=== PATIENT | male | born 1955 | race American Indian/Alaskan Native ===

== ENCOUNTER 2018-03-15 13:35 | Inpatient (IN) ==
--- NOTE | 2018-03-15 13:58 | Emergency Department Note ---
Nausea/Vomiting/Diarrhea HPI - General Chief complaint: Nausea/Vomiting/Diarrhea Stated complaint: n/v/d for 2 days Time Seen by Provider: 03/15/18 13:55 Source: EMS Mode of arrival: EMS Limitations: language barrier - History of Present Illness HPI Narrative: Apparently family called EMS because of patient having nausea, vomiting, diarrhea for 2-3 days. This is per EMS and patient admitted some of this to triage nursing but it is difficult to get much information out of him as he appears to be confused, focus was on some back pain, does not answer questions very well, does not seem to understand, etc. REVIEW OF SYSTEMS: Today has denied chest pain, shortness of breath. Has had abdominal pain. Reports low back pain. He has a history of some constipation and incontinence. - Related Data Home Medications Medication Instructions Recorded Confirmed Lisinopril [Zestril] 20 mg PO DAILY 03/02/15 03/15/18 acetaminophen 650 mg PO Q6H PRN 05/31/17 03/15/18 albuterol sulfate HFA 90 2 puff INHALATION QID g 05/31/17 03/15/18 mcg/actuation aerosol inhaler chlorthalidone 25 mg tablet 12.5 mg PO QDAY tab 05/31/17 03/15/18 cyanocobalamin (vitamin B-12) 1 tab PO QAM 05/31/17 03/15/18 docusate sodium 100 mg capsule 100 mg PO BID PRN 05/31/17 03/15/18 ergocalciferol (vitamin D2) 50,000 50,000 unit PO QWEEK 05/31/17 03/15/18 unit capsule folic acid 1 mg tablet 1 mg PO QAM tab 05/31/17 03/15/18 hydrocortisone 1 applic TOPICAL BID PRN 05/31/17 03/15/18 ipratropium bromide 2 puff INHALATION BID 05/31/17 03/15/18 lactulose 15 ml PO BID 05/31/17 03/15/18 polyethylene glycol 3350 17 g PO QAM 05/31/17 03/15/18 Allergies Allergy/AdvReac Type Severity Reaction Status Date / Time aspirin [ASPIRIN] Allergy Unknown unkown Verified 07/12/17 07:25 NSAIDS (Non-Steroidal Allergy Unknown Unknown Verified 07/08/17 10:27 Anti-Inflamma Past Medical History - Past Medical History PMFSH Narrative: All Active Problems (Last Updated 03/15/18 @ 14:43 by Fidencio Menezes DO) Elevated transaminase level (Chronic) Neuropathy (Chronic) Anemia (Chronic) Reactive airway disease (Chronic) Alcohol abuse (Chronic) Hypertension (Chronic) Cholelithiasis (Chronic) Cirrhosis of liver (Chronic) Chronic pain - hip, back, neck Pulmonary HTN Past Surgical History (Last Reviewed 07/08/17 @ 14:08 by Faustina Ruiz MD) History of open reduction and internal fixation (ORIF) procedure (Chronic) Family History (Last Reviewed 07/08/17 @ 14:08 by Faustina Ruiz MD) Father Heart disease Stroke Brother Heart disease Medical history: Reports: arthritis, renal disease Psychiatric history: Reports: no psych history Surgical history ED: Reports: hip replacement (left), orthopedic, other - Social History smoking status: Current some day smoker Alcohol use: Reports: None (history of alcoholism) Drug use: Reports: none Physical Exam Limitations: language barrier General appearance: in no apparent distress, lethargic, other (poorly interactive/responsive.) Head: atraumatic, normocephalic Eye: Present: EOMI Neck: Present: trachea midline. Absent: lymphadenopathy, thyromegaly Respiratory: Present: normal lung sounds bilaterally. Absent: respiratory distress, wheezes, stridor, accessory muscle use, prolonged expiratory phase Cardiovascular: Present: regular rate, normal rhythm. Absent: systolic murmur, diastolic murmur Course Course Narrative: 2:03 PM - patient initially would not respond to any of my questions. 15-20 minutes later he had appropriate eye opening and some interaction but still was difficult to get any reliable answers from him. He spoke of back pain but on exam he was not tender to percussion over the spinous processes, lumbosacral joint area or sacroiliac areas. No deformity or mass or nodule. Because of his obtundation, multiple labs, tox screen, UA with drugs of abuse and CT scan of the head were eventually ordered. Labs demonstrated a urinary tract infection but no elevated white count. He had a low-grade temperature of 100.2. Blood cultures obtained, urine culture and ceftriaxone ordered. Has some chronic thrombocytopenia and elevated transaminase similar to previously. 2:38 PM - I tried to call patient's sister, Anneliese, at [phone], with no success and left a message requesting callback. I repeated this approximately 45-60 minutes later. Vital Signs Temperature 100.2 F H 03/15/18 13:38 Pulse Rate 80 03/15/18 13:38 Respiratory Rate 22 03/15/18 13:38 Blood Pressure 129/67 03/15/18 13:38 Pulse Oximetry (%) 95 03/15/18 13:38 Temperature 100.2 F H 03/15/18 13:38 Pulse Rate 76 03/15/18 15:52 Respiratory Rate 22 03/15/18 13:38 Blood Pressure 136/105 03/15/18 15:47 Pulse Oximetry (%) 100 03/15/18 15:52 Nausea/Vomiting/Diarrhea - Lab Data Result diagrams: 03/15/18 14:01 03/15/18 14:01 Lab Results 03/15/18 03/15/18 03/15/18 Range/Units 14:01 14:01 14:01 WBC 4.1 L (4.5-11.0) K/mcL RBC 4.36 L (4.50-5.90) M/mcL Hgb 13.9 (13.5-16.5) g/dL Hct 40.8 L (41.0-55.0) % POC Hct 41.0 (41.0-55.0) % MCV 93.7 (80.0-100.0) fL MCH 31.9 (26.0-34.0) pg MCHC 34.1 (31.0-36.0) g/dL RDW 14.8 H (11.5-14.5) % Plt Count 128 L (140-440) K/mcL MPV 8.8 (7.4-10.4) fL Total Counted 100 Seg Neutrophils % 70 (38-78) % Band Neutrophils % 3 (0-10) % Lymphocytes % 16 (15-49) % Monocytes % (Manual) 6 (1-12) % Eosinophils % (Manual) 2 (0-7) % Reactive Lymphocytes 3 H (0-2) % Platelet Estimate Decreased A (NORMAL) RBC Morphology Abnorm A (NORMAL) Anisocytosis 1+ A (NONE SEEN) VBG Lactic Acid (0.5-2.2) mmol/L POC Sodium 144 (133-145) mmol/L Sodium 142 (133-145) mmol/L POC Potassium 3.2 L (3.3-5.1) mmol/L Potassium 3.3 (3.3-5.1) mmol/L POC Chloride 106 (96-108) mmol/L Chloride 105 (96-108) mmol/L Carbon Dioxide 23 (22-30) mmol/L POC Total CO2 24 (22-30) mmol/L Anion Gap 14.0 (8-16) POC BUN 15 (8-23) mg/dl BUN 12 (8-23) mg/dl Creatinine 0.8 (0.7-1.2) mg/dl POC Creatinine 0.7 (0.7-1.2) mg/dl GFR Calculation 96 Glucose 100 (70-105) mg/dL POC Glucose 96 (70-105) mg/dL Calcium 9.4 (8.6-10.4) mg/dl POC WB Ioniz Calcium 1.13 L (1.16-1.32) mmol/L Total Bilirubin 2.0 H (0.0-1.0) mg/dL AST 55 H (0-37) U/l ALT 33 (0-40) U/l Alkaline Phosphatase 87 (39-117) U/L Ammonia 82 H (16-60) umol/L Total Protein 6.5 (5.9-8.4) gm/dL Albumin 3.0 L (3.2-5.2) gm/dL Globulin 3.5 (2.2-3.7) gm/dL Albumin/Globulin Ratio 0.9 L (1.0-2.3) Urine Color Urine Appearance Urine pH (5.0-9.0) Ur Specific [place] (1.000-1.035) Urine Protein (NEG) mg/dL Urine Glucose (UA) (NEG) mg/dL Urine Ketones (NEG) mg/dL Urine Occult Blood (<0.03) mg/dL Urine Nitrate (NEG) Urine Bilirubin (NEG) mg/dL Urine Ictotest (NEG) Urine Urobilinogen (NEG) mg/dL Ur Leukocyte Esterase (NEG) /uL Urine RBC (0-1) /hpf Urine WBC (0-4) /hpf Ur Squamous Epith Cells (0-4) /hpf Ur Transition Epith Cell (0-2) /hpf Urine Bacteria (0) /hpf Hyaline Casts (0-2) /lpf Urine Mucus (0) /hpf Ur Culture Indicated? Urine Opiates Screen (NONDETECTED) Ur Oxycodone Screen (NONDETECTED) Urine Methadone Screen (NONDETECTED) Ur Barbiturates Screen (NONDETECTED) Ur Phencyclidine Scrn (NONDETECTED) Ur Amphetamines Screen (NONDETECTED) U Benzodiazepines Scrn (NONDETECTED) Urine Cocaine Screen (NONDETECTED) U Marijuana (THC) Screen (NONDETECTED) Ethyl Alcohol (<0.010) gm/dl 03/15/18 03/15/18 03/15/18 Range/Units 14:01 14:01 14:45 WBC (4.5-11.0) K/mcL RBC (4.50-5.90) M/mcL Hgb (13.5-16.5) g/dL Hct (41.0-55.0) % POC Hct (41.0-55.0) % MCV (80.0-100.0) fL MCH (26.0-34.0) pg MCHC (31.0-36.0) g/dL RDW (11.5-14.5) % Plt Count (140-440) K/mcL MPV (7.4-10.4) fL Total Counted Seg Neutrophils % (38-78) % Band Neutrophils % (0-10) % Lymphocytes % (15-49) % Monocytes % (Manual) (1-12) % Eosinophils % (Manual) (0-7) % Reactive Lymphocytes (0-2) % Platelet Estimate (NORMAL) RBC Morphology (NORMAL) Anisocytosis (NONE SEEN) VBG Lactic Acid 2.1 (0.5-2.2) mmol/L POC Sodium (133-145) mmol/L Sodium (133-145) mmol/L POC Potassium (3.3-5.1) mmol/L Potassium (3.3-5.1) mmol/L POC Chloride (96-108) mmol/L Chloride (96-108) mmol/L Carbon Dioxide (22-30) mmol/L POC Total CO2 (22-30) mmol/L Anion Gap (8-16) POC BUN (8-23) mg/dl BUN (8-23) mg/dl Creatinine (0.7-1.2) mg/dl POC Creatinine (0.7-1.2) mg/dl GFR Calculation Glucose (70-105) mg/dL POC Glucose (70-105) mg/dL Calcium (8.6-10.4) mg/dl POC WB Ioniz Calcium (1.16-1.32) mmol/L Total Bilirubin (0.0-1.0) mg/dL AST (0-37) U/l ALT (0-40) U/l Alkaline Phosphatase (39-117) U/L Ammonia (16-60) umol/L Total Protein (5.9-8.4) gm/dL Albumin (3.2-5.2) gm/dL Globulin (2.2-3.7) gm/dL Albumin/Globulin Ratio (1.0-2.3) Urine Color Urine Appearance Urine pH (5.0-9.0) Ur Specific [place] (1.000-1.035) Urine Protein (NEG) mg/dL Urine Glucose (UA) (NEG) mg/dL Urine Ketones (NEG) mg/dL Urine Occult Blood (<0.03) mg/dL Urine Nitrate (NEG) Urine Bilirubin (NEG) mg/dL Urine Ictotest (NEG) Urine Urobilinogen (NEG) mg/dL Ur Leukocyte Esterase (NEG) /uL Urine RBC (0-1) /hpf Urine WBC (0-4) /hpf Ur Squamous Epith Cells (0-4) /hpf Ur Transition Epith Cell (0-2) /hpf Urine Bacteria (0) /hpf Hyaline Casts (0-2) /lpf Urine Mucus (0) /hpf Ur Culture Indicated? Urine Opiates Screen None detected (NONDETECTED) Ur Oxycodone Screen None detected (NONDETECTED) Urine Methadone Screen None detected (NONDETECTED) Ur Barbiturates Screen None detected (NONDETECTED) Ur Phencyclidine Scrn None detected (NONDETECTED) Ur Amphetamines Screen Suspect positive A (NONDETECTED) U Benzodiazepines Scrn None detected (NONDETECTED) Urine Cocaine Screen None detected (NONDETECTED) U Marijuana (THC) Screen Suspect positive A (NONDETECTED) Ethyl Alcohol < 0.010 (<0.010) gm/dl 03/15/18 Range/Units 14:45 WBC (4.5-11.0) K/mcL RBC (4.50-5.90) M/mcL Hgb (13.5-16.5) g/dL Hct (41.0-55.0) % POC Hct (41.0-55.0) % MCV (80.0-100.0) fL MCH (26.0-34.0) pg MCHC (31.0-36.0) g/dL RDW (11.5-14.5) % Plt Count (140-440) K/mcL MPV (7.4-10.4) fL Total Counted Seg Neutrophils % (38-78) % Band Neutrophils % (0-10) % Lymphocytes % (15-49) % Monocytes % (Manual) (1-12) % Eosinophils % (Manual) (0-7) % Reactive Lymphocytes (0-2) % Platelet Estimate (NORMAL) RBC Morphology (NORMAL) Anisocytosis (NONE SEEN) VBG Lactic Acid (0.5-2.2) mmol/L POC Sodium (133-145) mmol/L Sodium (133-145) mmol/L POC Potassium (3.3-5.1) mmol/L Potassium (3.3-5.1) mmol/L POC Chloride (96-108) mmol/L Chloride (96-108) mmol/L Carbon Dioxide (22-30) mmol/L POC Total CO2 (22-30) mmol/L Anion Gap (8-16) POC BUN (8-23) mg/dl BUN (8-23) mg/dl Creatinine (0.7-1.2) mg/dl POC Creatinine (0.7-1.2) mg/dl GFR Calculation Glucose (70-105) mg/dL POC Glucose (70-105) mg/dL Calcium (8.6-10.4) mg/dl POC WB Ioniz Calcium (1.16-1.32) mmol/L Total Bilirubin (0.0-1.0) mg/dL AST (0-37) U/l ALT (0-40) U/l Alkaline Phosphatase (39-117) U/L Ammonia (16-60) umol/L Total Protein (5.9-8.4) gm/dL Albumin (3.2-5.2) gm/dL Globulin (2.2-3.7) gm/dL Albumin/Globulin Ratio (1.0-2.3) Urine Color Jenna Urine Appearance Hazy Urine pH 5.0 (5.0-9.0) Ur Specific [place] 1.024 (1.000-1.035) Urine Protein 30 A (NEG) mg/dL Urine Glucose (UA) Negative (NEG) mg/dL Urine Ketones 5/tr A (NEG) mg/dL Urine Occult Blood 0.03 A (<0.03) mg/dL Urine Nitrate Pos A (NEG) Urine Bilirubin 2.0 A (NEG) mg/dL Urine Ictotest Pos A (NEG) Urine Urobilinogen 4.0 A (NEG) mg/dL Ur Leukocyte Esterase 250 A (NEG) /uL Urine RBC 2 H (0-1) /hpf Urine WBC 108 H (0-4) /hpf Ur Squamous Epith Cells < 1 (0-4) /hpf Ur Transition Epith Cell 1 (0-2) /hpf Urine Bacteria Many A (0) /hpf Hyaline Casts 8 H (0-2) /lpf Urine Mucus Many A (0) /hpf Ur Culture Indicated? Yes Urine Opiates Screen (NONDETECTED) Ur Oxycodone Screen (NONDETECTED) Urine Methadone Screen (NONDETECTED) Ur Barbiturates Screen (NONDETECTED) Ur Phencyclidine Scrn (NONDETECTED) Ur Amphetamines Screen (NONDETECTED) U Benzodiazepines Scrn (NONDETECTED) Urine Cocaine Screen (NONDETECTED) U Marijuana (THC) Screen (NONDETECTED) Ethyl Alcohol (<0.010) gm/dl Disposition Pt seen by [employer]/[facility] only: No Clinical Impression: Mental status, decreased, Amphetamine abuse, Marijuana use Urinary tract infection Qualifiers: Urinary tract infection type: site unspecified Hematuria presence: without hematuria Qualified Code(s): N39.0 - Urinary tract infection, site not specified Summary: 4:05 PM - patient's scenario discussed with Dr. Rocha, with conclusion for admission. Probable hepatic encephalopathy. Patient had an elevated ammonia level. Still was unable to contact family to clarify patient's baseline. He at least has mental status changes with confusion and a significant urinary tract infection. With fever consider complicated UTI. Dr. Rocha kindly accepted care of this patient. Because of his confusion and some agitation with getting out of bed, he will require closer monitoring. Long-term care issues for his assistance and maintenance care remain unanswered. Disposition: Xfer As Inpt ([facility]) Condition: Fair Referrals: Carline Urbina ARNP [Primary Care Provider] -
[2018-03-15 14:46] LABS: Mean Cell Volume 93.7 fL (80.0-100.0); Mean Corpuscular HGB Conc 34.1 g/dL (31.0-36.0); Mean Corpuscular Hemoglobin 31.9 pg (26.0-34.0); Platelet Count 128 K/mcL (140-440); RBC 4.36 M/mcL (4.50-5.90); Red Cell Distribution Width 14.8 % (11.5-14.5)
[2018-03-15 15:08] LABS: ALT/SGPT 33 U/l (0-40); Albumin/Globulin Ratio 0.9 (1.0-2.3); Alkaline Phosphatase 87 U/L (39-117); Blood Urea Nitrogen 12 mg/dl (8-23)
[2018-03-15] MEDS ORDERED: cefTRIAXone 1 GM VIAL IV ONE (15:27)
[2018-03-15 15:45] LABS: Appearance,Urine HAZY; Bacteria,Urine MANY /hpf (0); Color,Urine AMBER; Glucose,Urine (UA) NEGATIVE (NEG); Ictotest,Urine POS (NEG); Leukocyte Esterase,Urine 250 /uL (NEG); Mucus,Urine MANY /hpf (0); Protein,Urine 30 mg/dL (NEG); Specific Gravity,Urine 1.024 (1.000-1.035); Urine Blood 0.03 mg/dL (<0.03); Urine Hyaline Cast 8 /lpf (0-2); Urine RBC 2 /hpf (0-1); Urine Squamous Epithelial Cell < 1 /hpf (0-4); Urine Transitional Epi Cells 1 /hpf (0-2); Urine WBC 108 /hpf (0-4)
[2018-03-15 15:55] LABS: Amphetamine Screen,Urine SUSPECT POSITIVE (NONDETECTED); Benzodiazepines Screen,Urine NONE DETECTED (NONDETECTED); Cocaine Screen,Urine NONE DETECTED (NONDETECTED); Opiate Screen,Urine NONE DETECTED (NONDETECTED); Oxycodone, Urine Screen NONE DETECTED (NONDETECTED)
[2018-03-15 16:05] LABS: Anisocytosis 1+ (NONE SEEN); Band Neutrophils % 3 % (0-10); Eosinophils % (Manual) 2 % (0-7); Lymphocytes % 16 % (15-49); Monocytes % (Manual) 6 % (1-12); Platelet Estimate DECREASED (NORMAL); RBC Morphology ABNORM (NORMAL); Segmented Neutrophils % 70 % (38-78)
[2018-03-15] MEDS ORDERED: 0.9 % SODIUM CHLORIDE 1,000 ML IV ONE (16:12)
--- NOTE | 2018-03-15 16:47 | Internal Med History&Physical ---
Medical - H&P: HPI Patient information: Note initiated : 03/15/18 at 4:44 pm Service Date, if different from initiated Date: [] Patient: Romero Goodman a 62 y/o M admitted on for n/v/d for 2 days. Chief Complaint: [] History of present illness: Mr. Goodman is a 62 year old M who presents to the ER today with complaints of nausea/vomiting / diarrhea? the patient is confused and obtunded, no history possible from the patient, opens eyes intermittently, but unable to provide any meaningful history To the ER provider it seems he complained about back pain. In the ER The patient had a low-grade fever on presentation of 100.2, heart rate 80, blood pressure 131/88 saturating 99% on room air. The patient was obtunded unable to provide any meaningful history. Head CT was done and has been reported as negative, abdominal x-ray has been reported as negative, Labs show WBC count of 4.1 which is chronically low, hemoglobin 13.9, platelets 128 chronically low, chemistry shows sodium 142, potassium 3.3 creatinine 0.8 bicarbonate 23 glucose of 100. Lactic acid 2.1, albumin 3, total bilirubin 2, AST 55 ALT 33. Alk phos 87. Ammonia level elevated at 82. UA suggestive of urinary tract infection. Patient has a urine tox which is positive for methamphetamine as well as marijuana. Negative for alcohol negative for opiates. On further review of the chart it seems that the patient does have a history of cirrhosis of his liver, chronic back pain and has been seen in the pain clinic in [facility] the last note that I can access is August 2016. ROS unobtainable: due to mental status Medical - H&P: PMH Medical history: Medical History (Last Updated 03/15/18 @ 15:21 by Fidencio Menezes DO) Hip joint pain, left (ICD-719.45) (TLD36-M82.552) Lumbar radiculitis (ICD-724.4) (MLQ16-D75.16) Back pain, lumbar, chronic (ICD-724.2) (HBN81-O82.5) buttermaker helper opioid therapy (ICD-V58.69) (GIA09-A59.891) Astigmatism (ICD-367.20) (VLF76-F99.209) Anisometropia (ICD-367.31) (CJL85-B51.31) Presbyopia (ICD-367.4) (VSR20-P44.4) Myopia (ICD-367.1) (SBP03-Q12.10) Hypertensive disorder (ICD-401.9) (GDO76-K32) Chronic hepatitis C without mention of hepatic coma (ICD-070.54) (AEQ19-Y23.2) Amphetamine abuse (ICD-305.70) (XOW39-N88.10) Cirrhosis, alcoholic (ICD-571.2) (TGK40-B95.30) Pancytopenia (ICD-284.1) (SCP63-W84.818) Thrombocytopenia (ICD-287.5) (HNS63-Q08.6) Degenerative arthritis (ICD-715.90) (GHE49-U60.90) Anemia (ICD-285.9) (GXC00-P75.9) Alcohol withdrawal seizure (ICD-291.89) (GUP61-U44.259) Alcohol abuse (ICD-305.00) (PWB56-Z67.10 Surgical history: Past Surgical History (Last Reviewed 07/08/17 @ 14:08 by Faustina Ruiz MD) History of open reduction and internal fixation (ORIF) procedure (Chronic) Pertinent family history: Family History (Last Reviewed 07/08/17 @ 14:08 by Faustina Ruiz MD) Father Heart disease Stroke Brother Heart disease Medical - H&P: Meds Home Medications Medication Instructions Recorded Confirmed Type Lisinopril [Zestril] 20 mg PO DAILY 03/02/15 03/15/18 History acetaminophen 650 mg PO Q6H PRN 05/31/17 03/15/18 History albuterol sulfate HFA 90 2 puff INHALATION QID g 05/31/17 03/15/18 History mcg/actuation aerosol inhaler chlorthalidone 25 mg tablet 12.5 mg PO QDAY tab 05/31/17 03/15/18 History cyanocobalamin (vitamin B-12) 1 tab PO QAM 05/31/17 03/15/18 History docusate sodium 100 mg capsule 100 mg PO BID PRN 05/31/17 03/15/18 History ergocalciferol (vitamin D2) 50,000 50,000 unit PO QWEEK 05/31/17 03/15/18 History unit capsule folic acid 1 mg tablet 1 mg PO QAM tab 05/31/17 03/15/18 History hydrocortisone 1 applic TOPICAL BID PRN 05/31/17 03/15/18 History ipratropium bromide 2 puff INHALATION BID 05/31/17 03/15/18 History lactulose 15 ml PO BID 05/31/17 03/15/18 History polyethylene glycol 3350 17 g PO QAM 05/31/17 03/15/18 History Allergies Allergy/AdvReac Type Severity Reaction Status Date / Time aspirin [ASPIRIN] Allergy Unknown unkown Verified 07/12/17 07:25 NSAIDS (Non-Steroidal Allergy Unknown Unknown Verified 07/08/17 10:27 Anti-Inflamma Medical - H&P: Exam - Constitutional Vitals: Temp Pulse Resp BP Pulse Ox 99.6 F H 63 22 131/88 99 03/15/18 16:34 03/15/18 16:23 03/15/18 13:38 03/15/18 16:18 03/15/18 16:23 Exam: GENERAL: The patient is a poorly kept individual, obtunded, in no apparent distress. Opens eyes but closes them rapidly does not seem to follow many commands VITAL SIGNS: Reviewed and as noted elsewhere. HEENT: Head is normocephalic and atraumatic. Extraocular muscles are intact. Pupils are equal, round, and reactive to light. Nares appeared normal. Mouth appears any without lesions. Poor dentition, mucous membranes are dry. NECK: Normal to inspection, Supple, No lymphadenopathy or thyromegaly. LUNGS: Air entry equal on both sides, no wheezing, crackles or rhonchi noted. No accessory muscles of respiration HEART: Regular rate and rhythm normal, S1 and S2 heard, no Gallop, S3 or Rub Noted, No Gross murmur heard. ABDOMEN: Soft, nontender, and nondistended. Positive bowel sounds. No hepatosplenomegaly was noted. EXTREMITIES: No cyanosis, clubbing, rash, lesions or edema. NEUROLOGIC: Cranial nerves II through XII are grossly intact. Moving all extremities, astrexis present, Encephalopathic. PSYCHIATRIC: Drowsy, SKIN: No ulceration or wounds noted, No jaundice, No rash noted. Medical - H&P: Reslt - Labs CBC & Chem 7: 03/15/18 14:01 03/15/18 14:01 Labs: Short CBC 03/15/18 Range/Units 14:01 WBC 4.1 L (4.5-11.0) K/mcL Hgb 13.9 (13.5-16.5) g/dL Hct 40.8 L (41.0-55.0) % Plt Count 128 L (140-440) K/mcL BMP 03/15/18 14:01 Sodium 142 Potassium 3.3 Chloride 105 Carbon Dioxide 23 BUN 12 Creatinine 0.8 Glucose 100 Calcium 9.4 Liver Function 03/15/18 Range/Units 14:01 Total Bilirubin 2.0 H (0.0-1.0) mg/dL AST 55 H (0-37) U/l ALT 33 (0-40) U/l Alkaline Phosphatase 87 (39-117) U/L Albumin 3.0 L (3.2-5.2) gm/dL Urine 03/15/18 Range/Units 14:45 Urine Color Jenna Urine Appearance Hazy Urine pH 5.0 (5.0-9.0) Ur Specific [place] 1.024 (1.000-1.035) Urine Protein 30 A (NEG) mg/dL Urine Glucose (UA) Negative (NEG) mg/dL Medical - H&P: A/P - Narrative A/P Narrative: A/P Urinary tract Infection Hepatic Encephalopathy Cirrhosis of Liver, Alcoholic Polysubstance abuse Chronic pain Thrombocytopenia Leucopenia Plan Admit to tele get CT Abdomen and pelvis, no e/o ascites clinically. R/o pyelonephritis, IV Rocephin for UTI, await cultures, IV fluids, Start on lactulose, for hepatic encephalopathy, susan stable, check INR. if patient unable to tolerate po, will place NG tube. Banana bag IV Daily thiamine and folic acid Will not initiate ciwa at this time, pt has h/o of etoh withdrawal, but presently seems encephalopathic, will have to be careful with use of ativan for encephalopathy. oxycodone prn for pain DVT hep sq Diet regular, mech soft, FUll code. Social History - Tobacco smoking status: Current some day smoker - Alcohol alcohol intake frequency: a few times a month - Substance use substance use type: other
--- NOTE | 2018-03-15 17:37 | XRay Report ---
CLINICAL INFORMATION: Abd pain, n/v COMPARISON: None. FINDINGS: The stool gas pattern is unremarkable. There is no free air, soft tissue mass, organomegaly or pathologic calcification. IMPRESSION: Normal abdomen Interpreted and Authenticated by: Migel Weems 03/15/18
--- NOTE | 2018-03-15 17:44 | Cat Scan Report ---
CLINICAL INFORMATION: Effusion obtundation COMPARISON: None. TECHNIQUE: 2.5 mm helical slices were obtained in the skull base to vertex. Following reconstruction, axial reformatted images were reviewed at bone and parenchymal windows. The exam was performed using radiation dose optimization techniques including, but not limited to, automated exposure control, adjustment of the mA and/or kV according to patient size and use of iterative reconstruction technique. Motion artifact mildly compromises the posterior fossa region FINDINGS: The ventricles, sulci, fissures, and cisterns are symmetrically enlarged compatible with moderate atrophy - no subdural hemorrhage or extra-axial fluid collections appreciated. Patchy chronic ischemic changes seen in the cerebral white matter. There is no intracerebral hemorrhage, mass effect or edema. Bone windows show a 4 cm mass filling the right maxillary sinus which completely erodes the medial wall maxillary sinus and extending into the nasal region. IMPRESSION: 1. Moderate atrophy and chronic ischemic changes in the cerebral white matter is more than is typically seen in this age group. There is no hemorrhage or other acute intracerebral abnormality 2. 4 cm mass filling the right maxillary sinus and eroding the medial wall of the sinus extending the nasal cavity. While this may represent polyp, mucocele or mucous retention cysts, a facial CT is recommended to evaluate for squamous cell carcinoma. The patient will likely require biopsy by ENT. The facial CT should be performed when the patient's mental status is clear Interpreted and Authenticated by: Migel Weems 03/15/18
[2018-03-15] MEDS ORDERED: NALOXONE HCL 0.4 MG/ML VIAL IV PRN (18:44)
[2018-03-15] MEDS ORDERED: oxyCODONE HCL 5 MG TABLET PO PRN (18:44)
[2018-03-15] MEDS ORDERED: cefTRIAXone 1 GM in DEXTROSE 5% IN WATER 50 ML IV SCH (18:44)
[2018-03-15] MEDS ORDERED: ONDANSETRON 4 MG/2 ML VIAL IV PRN (18:44)
[2018-03-15] MEDS ORDERED: POTASSIUM CHLORIDE 20 MEQ, MAGNESIUM SULFATE 16.24 MEQ, THIAMINE 100 MG, MVI, ADULT NO.... IV SCH (18:44)
[2018-03-15] MEDS: DEXTROSE 5%-LR 1,000 ML IV SCH (19:10)
[2018-03-15] MEDS: LACTULOSE 20 GM/30 ML ORAL.SOL PO SCH ×2 (19:14→21:49)
[2018-03-15] MEDS ORDERED: LACTULOSE 20 GM/30 ML ORAL.SOL ONE (19:19)
[2018-03-15] MEDS: IPRATROPIUM/ALBUTEROL 3 ML AMPUL.NEB NEB SCH (19:50)
[2018-03-15] MEDS ORDERED: IPRATROPIUM/ALBUTEROL 3 ML AMPUL.NEB NEB ONE (19:55)
[2018-03-15] MEDS ORDERED: IOPAMIDOL 100 ML BOTTLE IV ONE (20:42)
[2018-03-15] MEDS: 0.9 % SODIUM CHLORIDE 10 ML SYRINGE IV SCH (21:55)
[2018-03-15] MEDS: HEPARIN 5,000 UNIT/ML VIAL SQ SCH (21:55)
[2018-03-16] MEDS: IPRATROPIUM/ALBUTEROL 3 ML AMPUL.NEB NEB SCH ×4 (00:52→18:35)
[2018-03-16] MEDS: DEXTROSE 5%-LR 1,000 ML IV SCH ×5 (05:19→22:09)
[2018-03-16] MEDS: 0.9 % SODIUM CHLORIDE 10 ML SYRINGE IV SCH ×3 (06:31→20:26)
[2018-03-16 07:14] LABS: Basophils # (Auto) 0 K/mcL (0.0-0.3); Basophils % (Auto) 0.5 % (0.0-2.0); Eosinophils # (Auto) 0.1 K/mcL (0.0-0.7); Eosinophils % (Auto) 2.5 % (0.0-7.0); Granulocytes % (Auto) 60.7 % (38.0-78.0); Lymphocytes % (Auto) 22.7 % (15.5-49.0); Mean Cell Volume 94.1 fL (80.0-100.0); Mean Corpuscular HGB Conc 34.2 g/dL (31.0-36.0); Mean Corpuscular Hemoglobin 32.2 pg (26.0-34.0); Monocytes # (Auto) 0.6 K/mcL (0.1-0.9); Monocytes % (Auto) 13.6 % (1.0-12.0); Platelet Count 123 K/mcL (140-440); Red Cell Distribution Width 15.3 % (11.5-14.5)
[2018-03-16 07:36] LABS: ALT/SGPT 29 U/l (0-40); Albumin 2.9 gm/dL (3.2-5.2); Albumin/Globulin Ratio 0.9 (1.0-2.3); Alkaline Phosphatase 85 U/L (39-117); Bilirubin,Direct 0.3 mg/dL (0.0-0.3); Blood Urea Nitrogen 11 mg/dl (8-23); Gamma Glutamyl Transpeptidase 26 U/L (8-61); Uric Acid 5.9 mg/dL (2.5-8.0)
--- NOTE | 2018-03-16 08:15 | XRay Report ---
CLINICAL INFORMATION: altered mental status COMPARISON: 07/12/2017 FINDINGS: Heart size, mediastinum and pulmonary vessels are normal. Minor airspace disease in the right base likely represents atelectasis and scar. No definite infiltrate or effusion. Bones soft tissues are grossly normal. IMPRESSION: Minor right basilar atelectasis. Interpreted and Authenticated by: Migel Weems 03/16/18
[2018-03-16] MEDS: HEPARIN 5,000 UNIT/ML VIAL SQ SCH ×2 (08:39→20:26)
[2018-03-16] MEDS: LACTULOSE 20 GM/30 ML ORAL.SOL PO SCH ×3 (08:39→20:26)
[2018-03-16] MEDS ORDERED: cefTRIAXone 1 GM VIAL IV SCH (09:00)
[2018-03-16] MEDS ORDERED: LISINOPRIL 20 MG TABLET PO SCH (09:00)
[2018-03-16] MEDS ORDERED: FOLIC ACID 1 MG TABLET PO SCH (09:00)
[2018-03-16] MEDS ORDERED: POTASSIUM CHLORIDE 20 MEQ PACKET PO ONE (09:13)
[2018-03-16] MEDS ORDERED: THIAMINE 100 MG TABLET PO SCH (09:14)
[2018-03-16] MEDS ORDERED: POTASSIUM CHLORIDE 40 MEQ in DEXTROSE 5% IN WATER 500 ML IV ONE (10:00)
--- NOTE | 2018-03-16 10:43 | Cat Scan Report ---
CLINICAL INFORMATION: Nausea/vomiting and abdominal distention. Evaluate for urinary tract infection COMPARISON: Abdominal MRI - 10/11/2015 TECHNIQUE: Following enteric contrast, 80 cc of Isovue-300 were injected intravenously, and 60 seconds later, 0.625 mm helical slices were obtained from the mid heart through the subtrochanteric regions. Following reconstruction, 2.5 mm sagittal, coronal and axial reformatted images were processed and reviewed at bone, lung and soft tissue windows. Five minutes later, 0.625 mm helical slices were obtained from the mid heart through the kidneys and viewed at soft tissue windows.The exam was performed using radiation dose optimization techniques including, but not limited to, automated exposure control, adjustment of the mA and/or kV according to patient size and use of iterative reconstruction technique. FINDINGS: Lung bases show minimal atelectasis. No effusion. Visualized heart is normal. Images through the abdomen show moderate cirrhotic changes featuring a diminutive liver with irregular hepatic cortical surface and marked inhomogeneous attenuation. No masses that would suggest hepatoma. There are two small stones, less than 5 mm, in the gallbladder. The intrahepatic ducts are moderately dilated with abrupt tapering into a normal caliber common hepatic and common bile duct - CBD is 6 mm. There is no stone, mass or other cause identified for bile duct obstruction. There are multiple markedly enlarged varices in the paraesophageal perigastric, and perisplenic region. It increased in size since the comparison MRI from 2015 implying worsening portal hypertension. No ascites. Annular pancreas is noted - the remaining pancreas is normal. The aorta is normal in contour and caliber. There is an 80% stenosis of the celiac artery likely related to crossing of the diaphragm carolin - median arcuate ligament syndrome. The SMA, KARON, renal and iliac arteries are widely patent A 4 mm nonobstructing stone is seen inferior calyx the left kidney and a 2 mm nonobstructing stone in a mid calyx of the left kidney. There are few small simple cysts, less than 1 cm, in the right kidney. No evidence of hydronephrosis or abscess. Both upper collecting systems and ureters are otherwise normal. Solano catheter is seen in the urinary bladder which is decompressed, but no gross bladder abnormalities. Prostate and seminal vesicles are normal. The stomach, small and large bowel show minimal symmetric compatible with mild ileus. There is no free air or adenopathy. Bone windows show left hip prostheses anatomically aligned without loosening or infection. No focal osseous abnormality. Images should the pelvis IMPRESSION: 1. No CT evidence of advanced/complicated urinary tract infection or other acute process. 2. Moderate cirrhosis with portal hypertension featuring enlarged varices in the paraesophageal, perigastric, peripancreatic and perisplenic region. The size and number of varices have increased since the comparison MRI 2.5 years ago implying worsening portal hypertension. No evidence of ascites. 3. Cholelithiasis 4. Moderate dilatation of the intrahepatic ducts with abrupt tapering into a normal caliber common hepatic and common bile ducts. This pattern was also seen on the prior MRI. There may be a benign stricture in the common hepatic duct region or the common hepatic duct may be extrinsically encased by cirrhosis.. No mass identified in this region. A repeat abdominal MRI might be considered to exclude an atypical hepatoma or cholangiocarcinoma in this region. Correlation with alpha-fetoprotein is also advised 5. Two small nonobstructing stones in the mid and inferior calyces of the left kidney - ranging up to 4 mm. 6. 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 SMA, KARON and renal arteries are widely patent. 7. Annular pancreas - a congenital anomaly Interpreted and Authenticated by: Migel Weems 03/16/18
[2018-03-16] MEDS ORDERED: oxyCODONE HCL 5 MG TABLET PO PRN (10:49)
[2018-03-16] MEDS ORDERED: ONDANSETRON 4 MG/2 ML VIAL IV PRN (10:49)
[2018-03-16] MEDS ORDERED: NALOXONE HCL 0.4 MG/ML VIAL IV PRN (10:49)
--- NOTE | 2018-03-16 10:50 | Internal Med Progress Note ---
Medical - PN: Subj Patient information: Note initiated : 03/16/18 at 10:48 am Service Date, if different from initiated Date: [] Patient: Romero Goodman a 62 y/o M admitted on 03/15/18 for n/v/d for 2 days. Chief Complaint: [] Interval history: Mr. Goodman is a 62 year old M who presents to the ER today with complaints of nausea/vomiting / diarrhea? the patient is confused and obtunded, no history possible from the patient, opens eyes intermittently, but unable to provide any meaningful history To the ER provider it seems he complained about back pain. In the ER The patient had a low-grade fever on presentation of 100.2, heart rate 80, blood pressure 131/88 saturating 99% on room air. The patient was obtunded unable to provide any meaningful history. Head CT was done and has been reported as negative, abdominal x-ray has been reported as negative, Labs show WBC count of 4.1 which is chronically low, hemoglobin 13.9, platelets 128 chronically low, chemistry shows sodium 142, potassium 3.3 creatinine 0.8 bicarbonate 23 glucose of 100. Lactic acid 2.1, albumin 3, total bilirubin 2, AST 55 ALT 33. Alk phos 87. Ammonia level elevated at 82. UA suggestive of urinary tract infection. Patient has a urine tox which is positive for methamphetamine as well as marijuana. Negative for alcohol negative for opiates. On further review of the chart it seems that the patient does have a history of cirrhosis of his liver, chronic back pain and has been seen in the pain clinic in [facility] the last note that I can access is August 2016. 03/16 Patient seen examined, no acute overnight issues, patient tolerating po diet well, [facility] soft diet. mental status is better today, he is able to answer questions, knows he is in a hospital, but still has slow cognition. admits to using meth, has low grade fever, explained that he has UTI, and is on antibiotics He notes he was taking his lacutlose CT noted, has Celiac artery arcurate syndrone, pt has no clinical symptoms that he has reported so far, Patient wishes to go home today, explained the needd to stay in the [facility], he notes he will likely stay for 1 more day microbiology results are still pending. Pertinent ROS: Denies headache, dizziness Denies chest pain, palpitations Denies cough or shortness of breath Denies abdominal pain, nausea or vomiting. - Constitutional Vitals: Vital Signs Temp Pulse Resp BP Pulse Ox 100.1 F H 75 15 111/96 97 03/16/18 07:54 03/16/18 08:09 03/16/18 08:09 03/16/18 07:54 03/16/18 07:54 Period Temp Pulse Resp BP Sys/Ronquillo Pulse Ox Last 24 Hr 98.3 F-100.2 F 63-90 12-22 110-165/67-105 95-100 Intake and Output 03/15/18 03/16/18 03/16/18 21:59 05:59 13:59 Intake Total 1000 / 1000 2675 / 2675 1715 / 1715 Output Total 480 / 480 Balance 1000 / 1000 2195 / 2195 1715 / 1715 Weight 136 lb 8 oz Intake & Output: Intake & Output 03/15/18 03/16/18 03/16/18 21:59 05:59 13:59 Intake Total 1000 / 1000 2675 / 2675 1715 / 1715 Output Total 480 / 480 Balance 1000 / 1000 2195 / 2195 1715 / 1715 Weight 136 lb 8 oz Intake: IV 1000 / 1000 1025 / 1025 1475 / 1475 Dextrose 5%-Lactated Ringers 1, 1475 / 1475 000 ml @ 125 mls/hr IV .Q8H [facility] Rx#:[id number] Oral 1650 / 1650 240 / 240 Output: Urine Catheter Amount 480 / 480 Other: Meal Tuna sandwich, applesauce Breakfast Percent of Meal Consumed 100% Feeding Ability Independent Urine Appearance Clear Straight Clear Clear Sediment Small Blood Clots Urine Color Dark Yellow Straight Dark Yellow Bright Yellow Urine Odor Straight Strong Stool Size Moderate Stool Color Brown Stool Consistency Soft # Bowel Movements 1 Exam: Constitutional; Afebrile, cooperative, alert, not in distress. Eyes- No icterus, , No periorbital swelling Ears- Ext ear normal, hearing normal to conversation. Neck- Midline trachea, supple Respiratory system: Air Entry equal on both sides, No crackles or wheezing, no rhonchi. CVS- Rate rhythm regular, S1,S2 heard, no gallop, no rub. Abdomen- Soft nontender abdomen, no organomegaly, no tenderness, no guarding or rigidity, [employer]ITING [employer]GER- AOOx2, moving all extremities, no gross focal deficit noted. no astrexis, but mentation is slow. Medical - PN: Obj Da - Labs CBC & Chem 7: 03/16/18 06:11 03/16/18 06:11 Labs: Abnormal Lab Results 03/16/18 03/16/18 03/16/18 06:11 06:11 06:11 WBC 4.4 L RBC 4.20 L Hct 39.6 L RDW 15.3 H Plt Count 123 L [place] % (Auto) 13.6 H Lymph # (Auto) 1.0 L Reactive Lymphocytes Platelet Estimate RBC Morphology Anisocytosis PT 15.1 H INR 1.2 H POC Potassium Potassium 3.0 L POC WB Ioniz Calcium Phosphorus 2.0 L Total Bilirubin 1.4 H AST 49 H Ammonia Lactate Dehydrogenase 277 H Albumin 2.9 L Albumin/Globulin Ratio 0.9 L Urine Protein Urine Ketones Urine Occult Blood Urine Nitrate Urine Bilirubin Urine Ictotest Urine Urobilinogen Ur Leukocyte Esterase Urine RBC Urine WBC Urine Bacteria Hyaline Casts Urine Mucus Ur Amphetamines Screen U Marijuana (THC) Screen 03/15/18 03/15/18 03/15/18 14:45 14:45 14:01 WBC RBC Hct RDW Plt Count [place] % (Auto) Lymph # (Auto) Reactive Lymphocytes Platelet Estimate RBC Morphology Anisocytosis PT 15.2 H INR 1.2 H POC Potassium Potassium POC WB Ioniz Calcium Phosphorus Total Bilirubin AST Ammonia Lactate Dehydrogenase Albumin Albumin/Globulin Ratio Urine Protein 30 A Urine Ketones 5/tr A Urine Occult Blood 0.03 A Urine Nitrate Pos A Urine Bilirubin 2.0 A Urine Ictotest Pos A Urine Urobilinogen 4.0 A Ur Leukocyte Esterase 250 A Urine RBC 2 H Urine WBC 108 H Urine Bacteria Many A Hyaline Casts 8 H Urine Mucus Many A Ur Amphetamines Screen Suspect positive A U Marijuana (THC) Screen Suspect positive A 03/15/18 03/15/18 03/15/18 14:01 14:01 14:01 WBC 4.1 L RBC 4.36 L Hct 40.8 L RDW 14.8 H Plt Count 128 L [place] % (Auto) Lymph # (Auto) Reactive Lymphocytes 3 H Platelet Estimate Decreased A RBC Morphology Abnorm A Anisocytosis 1+ A PT INR POC Potassium 3.2 L Potassium POC WB Ioniz Calcium 1.13 L Phosphorus Total Bilirubin 2.0 H AST 55 H Ammonia 82 H Lactate Dehydrogenase Albumin 3.0 L Albumin/Globulin Ratio 0.9 L Urine Protein Urine Ketones Urine Occult Blood Urine Nitrate Urine Bilirubin Urine Ictotest Urine Urobilinogen Ur Leukocyte Esterase Urine RBC Urine WBC Urine Bacteria Hyaline Casts Urine Mucus Ur Amphetamines Screen U Marijuana (THC) Screen Meds: Medications Albuterol/Ipratropium (Duoneb) 3 ml NEB Q6HRT [facility] Last Admin: 03/16/18 08:09 Dose: 3 ml Ceftriaxone Sodium (Rocephin) 1 gm IV DAILY [facility] Last Admin: 03/16/18 08:39 Dose: 1 gm Folic Acid (Folic Acid) 1 mg PO QAM [facility] Last Admin: 03/16/18 08:39 Dose: 1 mg Heparin Sodium (Porcine) (Heparin) 5,000 unit SQ Q12 [facility] Last Admin: 03/16/18 08:39 Dose: 5,000 unit Dextrose/Lactated Ringer's (Dextrose 5%-Lactated Ringers) 1,000 mls @ 125 mls/ hr IV .Q8H [facility] Last Infusion: 03/16/18 10:16 Dose: 0 mls/hr Potassium Chloride 40 meq/ (Dextrose) 520 mls @ 130 mls/hr IV ONCE ONE Stop: 03/16/18 13:59 Last Admin: 03/16/18 10:16 Dose: 130 mls/hr Lactulose (Cephulac) 20 gm PO TID [facility] Last Admin: 03/16/18 08:39 Dose: 20 gm Lisinopril (Zestril) 20 mg PO DAILY [facility] Last Admin: 03/16/18 08:39 Dose: 20 mg Naloxone HCl (Narcan) 0.1 mg IV Q2MIN PRN PRN Reason: Opiate Reversal Ondansetron HCl (Zofran) 4 mg IV Q4HP PRN PRN Reason: Nausea And Vomiting Oxycodone HCl (Roxicodone) 5 mg PO Q4HP PRN PRN Reason: Pain Pneumococcal Polyvalent Vaccine (Pneumovax 23) 0.5 ml IM .ONCE ONE Stop: 03/17/18 10:01 Sodium Chloride (Saline Flush) 10 ml IV Q8 [facility] Last Admin: 03/16/18 06:31 Dose: 10 ml Thiamine HCl (Vitamin B1) 100 mg PO DAILY [facility] Last Admin: 10/07/18 10:16 Dose: 100 mg Medical - PN: A/P - Time Spent With Patient Total time spent is greater than 50% in coordination of care (as documented) at patient's floor/unit and/or counseling patient: - Narrative A/P Narrative: A/P Urinary tract Infection Hepatic Encephalopathy Cirrhosis of Liver, Alcoholic Polysubstance abuse Chronic pain Thrombocytopenia Leucopenia celiac artery stenosis Portal hypertension Plan xfer to med surg CT neg for pyelo, possible celiac artery stenosis, no symptoms Portal hypertension, worse, now but no e/o ascitis billary duct changes? Will refer to GI as outpatient for follow up on Cuirrhosis management. Continue IV rocephin for now continue lactulose, mental status is improving start on thiamine, folic acid, contniue IVF labs stable oxycodone prn for pain DVT hep sq Diet regular, FUll code. Medical - PN: Qual - VTE Deep Vein Thrombosis/Pulmonary Embolism Present on Admission: No
[2018-03-17] MEDS: IPRATROPIUM/ALBUTEROL 3 ML AMPUL.NEB NEB SCH ×4 (00:41→19:09)
[2018-03-17] MEDS: DEXTROSE 5%-LR 1,000 ML IV SCH (02:19)
[2018-03-17 05:30] LABS: Basophils # (Auto) 0 K/mcL (0.0-0.3); Basophils % (Auto) 0.4 % (0.0-2.0); Eosinophils # (Auto) 0.2 K/mcL (0.0-0.7); Eosinophils % (Auto) 2.9 % (0.0-7.0); Granulocytes % (Auto) 61.3 % (38.0-78.0); Lymphocytes # (Auto) 1.1 K/mcL (1.5-4.8); Lymphocytes % (Auto) 21.1 % (15.5-49.0); Mean Cell Volume 94.7 fL (80.0-100.0); Mean Corpuscular HGB Conc 34.2 g/dL (31.0-36.0); Mean Corpuscular Hemoglobin 32.4 pg (26.0-34.0); Monocytes # (Auto) 0.7 K/mcL (0.1-0.9); Monocytes % (Auto) 14.3 % (1.0-12.0); Platelet Count 119 K/mcL (140-440); RBC 3.63 M/mcL (4.50-5.90); Red Cell Distribution Width 15.2 % (11.5-14.5)
[2018-03-17 06:16] LABS: ALT/SGPT 28 U/l (0-40); Albumin 2.5 gm/dL (3.2-5.2); Albumin/Globulin Ratio 0.9 (1.0-2.3); Alkaline Phosphatase 124 U/L (39-117); Bilirubin,Direct 0.2 mg/dL (0.0-0.3); Blood Urea Nitrogen 7 mg/dl (8-23); Gamma Glutamyl Transpeptidase 26 U/L (8-61)
[2018-03-17] MEDS: 0.9 % SODIUM CHLORIDE 10 ML SYRINGE IV SCH ×3 (06:27→22:07)
[2018-03-17] MEDS ORDERED: MAGNESIUM SULFATE 2 GM/50 ML BAG IV ONE (07:00)
[2018-03-17] MEDS: THIAMINE 100 MG TABLET PO SCH (08:38)
[2018-03-17] MEDS: HEPARIN 5,000 UNIT/ML VIAL SQ SCH ×2 (08:39→21:59)
[2018-03-17] MEDS: cefTRIAXone 1 GM VIAL IV SCH (08:39)
[2018-03-17] MEDS: FOLIC ACID 1 MG TABLET PO SCH (08:39)
[2018-03-17] MEDS: LACTULOSE 20 GM/30 ML ORAL.SOL PO SCH ×3 (08:39→21:59)
[2018-03-17] MEDS: LISINOPRIL 20 MG TABLET PO SCH (08:39)
[2018-03-17] MEDS ORDERED: PNEUMOCOCCAL 23-VAL P-SAC VAC 0.5 ML VIAL IM ONE (10:00)
[2018-03-17] MEDS ORDERED: IOPAMIDOL 100 ML BOTTLE IV ONE (14:05)
--- NOTE | 2018-03-17 14:44 | Cat Scan Report ---
CLINICAL INFORMATION: Right maxillary sinus mass incidentally seen on noncontrast head CT COMPARISON: Head CT 03/15/2018. TECHNIQUE: 80 cc of Isovue 300 were injected intravenously and 0.625 mm axial slices were obtained through the facial region. Following reconstruction, 2.5 millimeter, axial, sagittal and coronal reformations were obtained and reviewed in bone and soft tissue windows.The exam was performed using radiation dose optimization techniques including, but not limited to, automated exposure control, adjustment of the mA and/or kV according to patient size and use of iterative reconstruction technique. FINDINGS: A 4 cm mass fills the right maxillary sinus. The medial sinus wall is absent - either surgically resected or eroded by the mass. The mass extends into the right lateral nasal cavity and also fills the right anterior ethmoid air cells and a portion of the posterior right ethmoid air cells. It also extends through the nasofrontal duct into the right frontal sinus. The right uncinate process, much of the right ethmoid sinus [place] and right turbinates are absent - either eroded by the mass or surgically resected. In the ethmoid region, there is also subtotal erosion of the adjacent medial right orbital wall. The right orbit is, otherwise, normal without belia soft tissue invasion.] The left frontal, maxillary and sphenoid air cells are clear. There are left-sided postsurgical changes including antral windows uncinectomy, partial ethmoidectomy and turbinectomy. Right nasal septal deviation is noted with a small spur extending across the right nasal cavity. The petrous temporal regions and TMJs are normal. There is a 20 mm cyst in the subdermal soft tissues over the left maxilla IMPRESSION: 1. Large (4 cm) soft tissue mass filling the entire right maxillary sinus and probable erosion of the medial wall of the right maxillary sinus with extension into the right lateral nasal cavity, anterior ethmoid air cells and the nasofrontal duct/right frontal sinus. In the ethmoid region, there is also partial erosion of the adjacent medial wall of the right orbit. Please see above. This could represent severe sinusitis, mucocele or squamous cell carcinoma. Suggest referral to ENT for direct evaluation and probable biopsy 2. Left antral windows, partial uncinectomy, turbinectomy and ethmoidectomy. 3. 20 subdermal cyst over the left anterior maxillary sinus. Interpreted and Authenticated by: Migel Weems 03/17/18
--- NOTE | 2018-03-17 15:39 | Internal Med Progress Note ---
Medical - PN: Subj Patient information: Note initiated : 03/17/18 at 3:36 pm Service Date, if different from initiated Date: [] Patient: Romero Goodman a 62 y/o M admitted on 03/15/18 for N/V/D for 2 Days/UTI. Chief Complaint: [] Interval history: Mr. Goodman is a 62 year old M who presents to the ER today with complaints of nausea/vomiting / diarrhea? the patient is confused and obtunded, no history possible from the patient, opens eyes intermittently, but unable to provide any meaningful history To the ER provider it seems he complained about back pain. In the ER The patient had a low-grade fever on presentation of 100.2, heart rate 80, blood pressure 131/88 saturating 99% on room air. The patient was obtunded unable to provide any meaningful history. Head CT was done and has been reported as negative, abdominal x-ray has been reported as negative, Labs show WBC count of 4.1 which is chronically low, hemoglobin 13.9, platelets 128 chronically low, chemistry shows sodium 142, potassium 3.3 creatinine 0.8 bicarbonate 23 glucose of 100. Lactic acid 2.1, albumin 3, total bilirubin 2, AST 55 ALT 33. Alk phos 87. Ammonia level elevated at 82. UA suggestive of urinary tract infection. Patient has a urine tox which is positive for methamphetamine as well as marijuana. Negative for alcohol negative for opiates. On further review of the chart it seems that the patient does have a history of cirrhosis of his liver, chronic back pain and has been seen in the pain clinic in [facility] the last note that I can access is August 2016. 03/16 Patient seen examined, no acute overnight issues, patient tolerating po diet well, [facility]. mental status is better today, he is able to answer questions, knows he is in a hospital, but still has slow cognition. admits to using meth, has low grade fever, explained that he has UTI, and is on antibiotics He notes he was taking his lacutlose CT noted, has Celiac artery arcurate syndrone, pt has no clinical symptoms that he has reported so far, Patient wishes to go home today, explained the needd to stay in the [facility], he notes he will likely stay for 1 more day microbiology results are still pending. 10/8 Patient seen and examined, no acute overnight events. Patient clinically has improved significantly, mental status is better strength is better but still a bit weak. Sister does not wish him to come back home given his weakness and the fact that she will not be able to care for him. She requested that we find a rehab facility. Patient has not shown any signs of alcohol withdrawal so far , I do not expect the patient to undergo alcohol withdrawal at this time. CT of the sinuses with contrast on for a mass, I reviewed the findings of invasive tumor versus mucocele versus severe sinusitis with Dr. Rodriguez who advised outpatient follow-up. Pertinent ROS: Denies headache, dizziness Denies chest pain, palpitations Denies cough or shortness of breath Denies abdominal pain, nausea or vomiting. - Constitutional Vitals: Vital Signs Temp Pulse Resp BP Pulse Ox 98.9 F 94 H 22 124/78 95 03/17/18 15:34 03/17/18 13:25 03/17/18 15:34 03/17/18 15:34 03/17/18 15:34 Period Temp Pulse Resp BP Sys/Ronquillo Pulse Ox Last 24 Hr 97.7 F-99.8 F 77-101 14-22 107-132/66-90 93-98 Intake and Output 03/17/18 03/17/18 03/17/18 05:59 13:59 21:59 Intake Total 1800 / 1800 925 / 925 120 / 120 Output Total 1025 / 1025 1050 / 1050 600 / 600 Balance 775 / 775 -125 / -125 -480 / -480 Weight 136 lb 8 oz Patient Weight 03/18/18 05:59 Weight 136 lb 8 oz Intake & Output: Intake & Output 03/17/18 03/17/18 03/17/18 05:59 13:59 21:59 Intake Total 1800 / 1800 925 / 925 120 / 120 Output Total 1025 / 1025 1050 / 1050 600 / 600 Balance 775 / 775 -125 / -125 -480 / -480 Weight 136 lb 8 oz Intake: IV 1000 / 1000 705 / 705 Dextrose 5%-Lactated Ringers 1, 1000 / 1000 655 / 655 000 ml @ 125 mls/hr IV .Q8H [facility] Rx#:[id number] Oral 800 / 800 220 / 220 120 / 120 Output: Urine Catheter Amount 550 / 550 300 / 300 Void Amount 325 / 325 600 / 600 Urine/Stool Mix 250 / 250 Stool 475 / 475 175 / 175 Other: Meal Breakfast Percent of Meal Consumed 50% Urine Appearance Clear Clear Clear Urine Color Dark Yellow Dark Yellow Light Jenna [place] Urine Odor Normal Normal Stool Size Large Moderate Stool Color Brown Brown Yellow Stool Consistency Liquid Liquid # Voids 1 # Bowel Movements 1 Exam: Constitutional; Afebrile, cooperative, alert, not in distress. Eyes- No icterus, , No periorbital swelling Ears- Ext ear normal, hearing normal to conversation. Neck- Midline trachea, supple Respiratory system: Air Entry equal on both sides, No crackles or wheezing, no rhonchi. CVS- Rate rhythm regular, S1,S2 heard, no gallop, no rub. 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 no astrexis, mentation better today Medical - PN: Obj Da - Labs CBC & Chem 7: 03/17/18 03:45 03/17/18 03:45 Labs: Abnormal Lab Results 03/17/18 03/17/18 03/17/18 03:45 03:45 03:45 WBC RBC 3.63 L Hgb 11.8 L Hct 34.4 L RDW 15.2 H Plt Count 119 L [place] % (Auto) 14.3 H Lymph # (Auto) 1.1 L Reactive Lymphocytes Platelet Estimate RBC Morphology Anisocytosis PT 16.1 H INR 1.3 H POC Potassium Potassium Carbon Dioxide 20 L BUN 7 L Calcium 8.5 L POC WB Ioniz Calcium Phosphorus Magnesium 1.5 L Total Bilirubin AST 48 H Alkaline Phosphatase 124 H Ammonia Lactate Dehydrogenase 312 H Total Protein 5.3 L Albumin 2.5 L Albumin/Globulin Ratio 0.9 L Urine Protein Urine Ketones Urine Occult Blood Urine Nitrate Urine Bilirubin Urine Ictotest Urine Urobilinogen Ur Leukocyte Esterase Urine RBC Urine WBC Urine Bacteria Hyaline Casts Urine Mucus Ur Amphetamines Screen U Marijuana (THC) Screen 03/16/18 03/16/18 03/16/18 06:11 06:11 06:11 WBC 4.4 L RBC 4.20 L Hgb Hct 39.6 L RDW 15.3 H Plt Count 123 L [place] % (Auto) 13.6 H Lymph # (Auto) 1.0 L Reactive Lymphocytes Platelet Estimate RBC Morphology Anisocytosis PT 15.1 H INR 1.2 H POC Potassium Potassium 3.0 L Carbon Dioxide BUN Calcium POC WB Ioniz Calcium Phosphorus 2.0 L Magnesium Total Bilirubin 1.4 H AST 49 H Alkaline Phosphatase Ammonia Lactate Dehydrogenase 277 H Total Protein Albumin 2.9 L Albumin/Globulin Ratio 0.9 L Urine Protein Urine Ketones Urine Occult Blood Urine Nitrate Urine Bilirubin Urine Ictotest Urine Urobilinogen Ur Leukocyte Esterase Urine RBC Urine WBC Urine Bacteria Hyaline Casts Urine Mucus Ur Amphetamines Screen U Marijuana (THC) Screen 03/15/18 03/15/18 03/15/18 14:45 14:45 14:01 WBC RBC Hgb Hct RDW Plt Count [place] % (Auto) Lymph # (Auto) Reactive Lymphocytes Platelet Estimate RBC Morphology Anisocytosis PT 15.2 H INR 1.2 H POC Potassium Potassium Carbon Dioxide BUN Calcium POC WB Ioniz Calcium Phosphorus Magnesium Total Bilirubin AST Alkaline Phosphatase Ammonia Lactate Dehydrogenase Total Protein Albumin Albumin/Globulin Ratio Urine Protein 30 A Urine Ketones 5/tr A Urine Occult Blood 0.03 A Urine Nitrate Pos A Urine Bilirubin 2.0 A Urine Ictotest Pos A Urine Urobilinogen 4.0 A Ur Leukocyte Esterase 250 A Urine RBC 2 H Urine WBC 108 H Urine Bacteria Many A Hyaline Casts 8 H Urine Mucus Many A Ur Amphetamines Screen Suspect positive A U Marijuana (THC) Screen Suspect positive A 03/15/18 03/15/18 03/15/18 14:01 14:01 14:01 WBC 4.1 L RBC 4.36 L Hgb Hct 40.8 L RDW 14.8 H Plt Count 128 L [place] % (Auto) Lymph # (Auto) Reactive Lymphocytes 3 H Platelet Estimate Decreased A RBC Morphology Abnorm A Anisocytosis 1+ A PT INR POC Potassium 3.2 L Potassium Carbon Dioxide BUN Calcium POC WB Ioniz Calcium 1.13 L Phosphorus Magnesium Total Bilirubin 2.0 H AST 55 H Alkaline Phosphatase Ammonia 82 H Lactate Dehydrogenase Total Protein Albumin 3.0 L Albumin/Globulin Ratio 0.9 L Urine Protein Urine Ketones Urine Occult Blood Urine Nitrate Urine Bilirubin Urine Ictotest Urine Urobilinogen Ur Leukocyte Esterase Urine RBC Urine WBC Urine Bacteria Hyaline Casts Urine Mucus Ur Amphetamines Screen U Marijuana (THC) Screen Meds: Medications Albuterol/Ipratropium (Duoneb) 3 ml NEB Q6HRT BILLY Last Admin: 03/17/18 13:23 Dose: 3 ml Ceftriaxone Sodium (Rocephin) 1 gm IV DAILY [facility] Last Admin: 03/17/18 08:39 Dose: 1 gm Folic Acid (Folic Acid) 1 mg PO QAM [facility] Last Admin: 03/17/18 08:39 Dose: 1 mg Heparin Sodium (Porcine) (Heparin) 5,000 unit SQ Q12 [facility] Last Admin: 03/17/18 08:39 Dose: 5,000 unit Lactulose (Cephulac) 20 gm PO TID [facility] Last Admin: 03/17/18 15:19 Dose: 20 gm Lisinopril (Zestril) 20 mg PO DAILY [facility] Last Admin: 03/17/18 08:39 Dose: 20 mg Naloxone HCl (Narcan) 0.1 mg IV Q2MIN PRN PRN Reason: Opiate Reversal Ondansetron HCl (Zofran) 4 mg IV Q4HP PRN PRN Reason: Nausea And Vomiting Oxycodone HCl (Roxicodone) 5 mg PO Q4HP PRN PRN Reason: Pain Sodium Chloride (Saline Flush) 10 ml IV Q8 [facility] Last Admin: 03/17/18 06:27 Dose: 10 ml Thiamine HCl (Vitamin B1) 100 mg PO DAILY [facility] Last Admin: 03/17/18 08:38 Dose: 100 mg Medical - PN: A/P - Time Spent With Patient Total time spent is greater than 50% in coordination of care (as documented) at patient's floor/unit and/or counseling patient: - Narrative A/P Narrative: A/P Urinary tract Infection Hepatic Encephalopathy Cirrhosis of Liver, Alcoholic Polysubstance abuse Chronic pain Thrombocytopenia Leucopenia celiac artery stenosis Portal hypertension maxillary mass Plan continue with IV abx, urine culture reviewed, klebsiella, will d/c on oral antibiotics for [address] reviewed, outpatient ENT follow uip continue with therapy, anticpate d/c to sNf in AM hepatic enceph has resolved will benefit from outpatient GI follow up too for portal hypertension continue with thiamine, folic acid, contniue IVF labs stable oxycodone prn for pain DVT hep sq Diet regular, FUll code. Medical - PN: Qual - VTE Deep Vein Thrombosis/Pulmonary Embolism Present on Admission: No
[2018-03-18] MEDS: IPRATROPIUM/ALBUTEROL 3 ML AMPUL.NEB NEB SCH ×2 (01:48→07:49)
[2018-03-18 06:19] LABS: Basophils # (Auto) 0 K/mcL (0.0-0.3); Basophils % (Auto) 0.3 % (0.0-2.0); Eosinophils # (Auto) 0.2 K/mcL (0.0-0.7); Granulocytes % (Auto) 60.8 % (38.0-78.0); Lymphocytes # (Auto) 1.1 K/mcL (1.5-4.8); Mean Cell Volume 93.8 fL (80.0-100.0); Mean Corpuscular HGB Conc 34.7 g/dL (31.0-36.0); Mean Corpuscular Hemoglobin 32.6 pg (26.0-34.0); Monocytes # (Auto) 0.6 K/mcL (0.1-0.9); Monocytes % (Auto) 12.9 % (1.0-12.0); Platelet Count 105 K/mcL (140-440); RBC 3.58 M/mcL (4.50-5.90); Red Cell Distribution Width 15.6 % (11.5-14.5)
[2018-03-18 06:48] LABS: ALT/SGPT 33 U/l (0-40); Albumin 2.5 gm/dL (3.2-5.2); Albumin/Globulin Ratio 0.9 (1.0-2.3); Alkaline Phosphatase 149 U/L (39-117); Bilirubin,Direct 0.3 mg/dL (0.0-0.3); Blood Urea Nitrogen 7 mg/dl (8-23); Gamma Glutamyl Transpeptidase 26 U/L (8-61); Uric Acid 4.5 mg/dL (2.5-8.0)
[2018-03-18] MEDS: 0.9 % SODIUM CHLORIDE 10 ML SYRINGE IV SCH (09:15)
[2018-03-18] MEDS: cefTRIAXone 1 GM VIAL IV SCH (09:15)
[2018-03-18] MEDS: FOLIC ACID 1 MG TABLET PO SCH (09:15)
[2018-03-18] MEDS: LISINOPRIL 20 MG TABLET PO SCH (09:15)
[2018-03-18] MEDS: THIAMINE 100 MG TABLET PO SCH (09:15)
[2018-03-18] MEDS: LACTULOSE 20 GM/30 ML ORAL.SOL PO SCH ×2 (09:15→09:31)
[2018-03-18] MEDS: HEPARIN 5,000 UNIT/ML VIAL SQ SCH ×2 (09:16→09:31)
--- NOTE | 2018-03-18 10:12 | Discharge Summary ---
Medical - DS: Prov Patient information: Note initiated : 03/18/18 at 10:02 am Service Date, if different from initiated Date: [] Patient: Romero Goodman 62 y/o M admitted on 03/15/18 for N/V/D for 2 Days/UTI. Chief Complaint: [] Date of admission: 03/15/18 18:40 Discharge date: 03/18/18 Primary care physician: Carline Urbina Consults: 03/15/18 Consult to Physician [CONS] Stat Comment: Consulting Provider: Ekta Rocha Reason For Exam: Physician to Consult Discharging clinician: Ekta Rocha Medical - DS: Meds - Discharge Medications Prescriptions: Levofloxacin [Levaquin] 500 mg PO DAILY #5 tablet Active and Home Medications: Home Medications Lisinopril [Zestril] 20 mg PO DAILY 03/02/15 [History Confirmed 03/15/18 Last Taken 03/01/15 21:00] acetaminophen 650 mg PO Q6H PRN 05/31/17 [History Confirmed 03/15/18 Last Taken Unknown] albuterol sulfate HFA 90 mcg/actuation aerosol inhaler 2 puff INHALATION QID g 05/31/17 [History Confirmed 03/15/18 Last Taken Unknown] chlorthalidone 25 mg tablet 12.5 mg PO QDAY tab 05/31/17 [History Confirmed 11/25 Last Taken Unknown] cyanocobalamin (vitamin B-12) 1 tab PO QAM 05/31/17 [History Confirmed 03/15/18 Last Taken Unknown] docusate sodium 100 mg capsule 100 mg PO BID PRN 05/31/17 [History Confirmed 11/25 Last Taken Unknown] ergocalciferol (vitamin D2) 50,000 unit capsule 50,000 unit PO QWEEK 05/31/17 [ History Confirmed 03/15/18 Last Taken Unknown] folic acid 1 mg tablet 1 mg PO QAM tab 05/31/17 [History Confirmed 03/15/18 Last Taken Unknown] hydrocortisone 1 applic TOPICAL BID PRN 05/31/17 [History Confirmed 03/15/18 Last Taken Unknown] ipratropium bromide 2 puff INHALATION BID 05/31/17 [History Confirmed 03/15/18 Last Taken Unknown] lactulose 15 ml PO BID 05/31/17 [History Confirmed 03/15/18 Last Taken Unknown] polyethylene glycol 3350 17 g PO QAM 05/31/17 [History Confirmed 03/15/18 Last Taken Unknown] Medical - DS: Hosp Hospital course: Mr. Goodman is a 62 year old M who presented to the ER with complaints of nausea/ vomiting / diarrhea. the patient is confused and obtunded, no history possible from the patient, opens eyes intermittently, but unable to provide any meaningful history To the ER provider it seems he complained about back pain. In the ER The patient had a low-grade fever on presentation of 100.2, heart rate 80, blood pressure 131/88 saturating 99% on room air. The patient was obtunded unable to provide any meaningful history. Head CT was done and has been reported as negative but noted sinus mass, abdominal x-ray has been reported as negative, Labs show WBC count of 4.1 which is chronically low, hemoglobin 13.9, platelets 128 chronically low, chemistry shows sodium 142, potassium 3.3 creatinine 0.8 bicarbonate 23 glucose of 100. Lactic acid 2.1, albumin 3, total bilirubin 2, AST 55 ALT 33. Alk phos 87. Ammonia level elevated at 82. UA suggestive of urinary tract infection. Patient has a urine tox which is positive for methamphetamine as well as marijuana. Negative for alcohol negative for opiates. On further review of the chart it seems that the patient does have a history of cirrhosis of his liver, chronic back pain and has been seen in the pain clinic in [facility] the last note that I can access is August 2016. Hepatic encephalopathy- Pt had elevated ammonia, METAL CLEANER signs of encephalopathy, Treated with fluids, Lactulose, with good results, pt was back to baseline mentation at discharge, to continue with lactulose for 2-3 BM in [address] abdomen is neg for acute process, but shows worsening of portal hypertention, and significant varices. He will benefit from GI follow up. Denies having a gi physician. I will refer him to GI as outpatient. UTI- Klebsiella UTI, hollis sensitive, will treat with po levoflox 500mg x 5 days. Was treated with rocephin in hospital Maxillary mass- noted on CT, CT sinus done, case reviewed with Dr Rodriguez from ENT , advised outpatient follow ujp for biopsy. Patient explained the need for follow up to ENT as this could be a malignant lesion, pt verbalized understanding. Will need biopsy, to be scheduled as outpatient. 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 The rest of the stay in the hospital was uneventful Discharge diagnosis: Hepatic encephalopathy, UTI, Maxillary mass - Time Spent with Patient Total time spent providing and/or coordinating discharge services: Less than 30 minutes Medical - DS: Exam - Constitutional Vitals: Vital Signs Temp Pulse Pulse Resp BP BP Pulse Ox 03/18/18 07:53 79 16 03/18/18 07:50 90 03/18/18 06:46 97.7 F 81 14 114/73 93 03/18/18 04:00 97.8 F 83 16 115/70 92 03/17/18 23:43 98.3 F 85 16 120/71 94 03/17/18 20:00 98.5 F 87 16 122/70 95 03/17/18 19:10 87 16 03/17/18 15:34 98.9 F 22 124/78 95 03/17/18 13:25 94 H 18 03/17/18 12:22 98.2 F 20 121/75 93 03/17/18 11:31 98.9 F 77 16 124/76 94 Intake and Output 03/17/18 03/18/18 03/18/18 21:59 05:59 13:59 Intake Total 360 / 360 300 / 300 120 / 120 Output Total 1200 / 1200 400 / 400 200 / 200 Balance -840 / -840 -100 / -100 -80 / -80 Intake: Oral 360 / 360 300 / 300 120 / 120 Output: Void Amount 850 / 850 400 / 400 200 / 200 Urine/Stool Mix 350 / 350 Other: Meal Dinner Breakfast Percent of Meal Consumed 100% 100% Feeding Ability Independent Urine Appearance Clear Clear Urine Color Bright Yellow Dark Yellow Urine Odor Normal Normal Stool Size Large Moderate Stool Color Brown Yellow Stool Consistency Watery Loose # Voids 1 # Bowel Movements 1 1 Weight 136 lb 8 oz 149 lb Additional comments: Constitutional; Afebrile, cooperative, alert, not in distress. Eyes- No icterus, , No periorbital swelling Ears- Ext ear normal, hearing normal to conversation. Neck- Midline trachea, supple Respiratory system: Air Entry equal on both sides, No crackles or wheezing, no rhonchi. CVS- Rate rhythm regular, S1,S2 heard, no gallop, no rub. Abdomen- Soft nontender abdomen, no organomegaly, no tenderness, no guarding or rigidity, METAL CLEANER- AOOx3, moving all extremities, no gross focal deficit noted. Medical - DS: Data Procedures and tests throughout hospitalization: Sinus CT IMPRESSION: 1. Large (4 cm) soft tissue mass filling the entire right maxillary sinus and probable erosion of the medial wall of the right maxillary sinus with extension into the right lateral nasal cavity, anterior ethmoid air cells and the nasofrontal duct/right frontal sinus. In the ethmoid region, there is also partial erosion of the adjacent medial wall of the right orbit. Please see above. This could represent severe sinusitis, mucocele or squamous cell carcinoma. Suggest referral to ENT for direct evaluation and probable biopsy 2. Left antral windows, partial uncinectomy, turbinectomy and ethmoidectomy. 3. 20 subdermal cyst over the left anterior maxillary sinus. Abdomen CT IMPRESSION: 1. No CT evidence of advanced/complicated urinary tract infection or other acute process. 2. Moderate cirrhosis with portal hypertension featuring enlarged varices in the paraesophageal, perigastric, peripancreatic and perisplenic region. The size and number of varices have increased since the comparison MRI 2.5 years ago implying worsening portal hypertension. No evidence of ascites. 3. Cholelithiasis 4. Moderate dilatation of the intrahepatic ducts with abrupt tapering into a normal caliber common hepatic and common bile ducts. This pattern was also seen on the prior MRI. There may be a benign stricture in the common hepatic duct region or the common hepatic duct may be extrinsically encased by cirrhosis.. No mass identified in this region. A repeat abdominal MRI might be considered to exclude an atypical hepatoma or cholangiocarcinoma in this region. Correlation with alpha-fetoprotein is also advised 5. Two small nonobstructing stones in the mid and inferior calyces of the left kidney - ranging up to 4 mm. 6. 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 SMA, KARON and renal arteries are widely patent. 7. Annular pancreas - a congenital anomaly Head CT IMPRESSION: 1. Moderate atrophy and chronic ischemic changes in the cerebral white matter is more than is typically seen in this age group. There is no hemorrhage or other acute intracerebral abnormality 2. 4 cm mass filling the right maxillary sinus and eroding the medial wall of the sinus extending the nasal cavity. While this may represent polyp, mucocele or mucous retention cysts, a facial CT is recommended to evaluate for squamous cell carcinoma. The patient will likely require biopsy by ENT. The facial CT should be performed when the patient's mental status is clear Labs on day of discharge: Labs from last 24 hours 03/18/18 03/18/18 03/18/18 04:55 04:55 04:55 WBC 4.8 RBC 3.58 L Hgb 11.7 L Hct 33.6 L MCV 93.8 MCH 32.6 MCHC 34.7 RDW 15.6 H Plt Count 105 L MPV 9.0 Gran % 60.8 Lymph % (Auto) 22.0 [place] % (Auto) 12.9 H Eos % (Auto) 4.0 Baso % (Auto) 0.3 Gran # 2.9 Lymph # (Auto) 1.1 L [place] # (Auto) 0.6 Eos # (Auto) 0.2 Baso # (Auto) 0 PT 15.6 H INR 1.2 H Sodium 134 Potassium 3.9 Chloride 106 Carbon Dioxide 20 L Anion Gap 8.0 BUN 7 L Creatinine 0.7 GFR Calculation 101 Glucose 99 Uric Acid 4.5 Calcium 8.2 L Phosphorus 2.7 Magnesium 1.6 Total Bilirubin 1.5 H Direct Bilirubin 0.3 GGT 26 AST 48 H ALT 33 Alkaline Phosphatase 149 H Lactate Dehydrogenase 277 H Total Protein 5.2 L Albumin 2.5 L Globulin 2.7 Albumin/Globulin Ratio 0.9 L Triglycerides 54 Preliminary micro results at discharge 03/15/18 15:40 Blood Culture - Preliminary Blood 03/15/18 15:40 Blood Culture - Preliminary Blood Medical - DS: A/P - Patient/Caregiver Discharge Instructions Activity: as per physical therapy, increase activity as tolerated Diet: Regular Diet Additional Instructions: Please take medications as prescribed Follow up with GI Dr Brandt in 2-4 weeks, Follow up with Dr Rodriguez ENT in 1 week. Follow up with PCP in 1-2 weeks Go to the ER if worsening mental status, chest pain, shortness of breath or any other acute concerns. - Follow up Plan Follow up with: Carline Urbina ARNP [Primary Care Provider] - Migel Brandt MD [Physician] - Amilcar Woodard MD [Physician] - Disposition: Xfer SNF Prognosis: Fair Rehab Potential: Fair I certify that the patient requires SNF services: Yes Overall status at discharge: patient is progressing back to baseline Medical - DS: Qual - VTE Deep Vein Thrombosis/Pulmonary Embolism Present on Admission: No
== END 2018-03-18 13:15 | DRG 442 ==
LOC: ED 13:35 → ICU 18:40 → MEDSUR 03-17 12:10
PROVIDERS: ADMIT Internal Medicine; ATTEND Internal Medicine
CPT/HCPCS: 80047; 85014; 97161; 97167; 99223; 99231; 99238; A6213; J0696; J1644; J3411; J3475; J3480; J7030; J7060; J7120; J7620; J7620-GY; Q9967

== ENCOUNTER 2021-04-13 13:23 | Inpatient (IN) ==
[2021-04-13] MEDS ORDERED: 0.9 % SODIUM CHLORIDE 1,000 ML IV ONE (14:21)
[2021-04-13 14:32] LABS: POC Blood Urea Nitrogen 21 mg/dL (6-20); POC CO2 26 mmol/L (22-30); POC Calcium, Ionized 1.19 mmEq/L (1.16-1.32); POC Chloride 103 mEq/L (96-108); POC Creatinine 1.2 mg/dL (0.6-1.2); POC Glucose, Random 67 mg/dL (70-105); POC Hematocrit 42 % (41-55); POC Potassium 3.9 mEql/L (3.3-5.1); POC Sodium 142 mEq/L (133-145)
[2021-04-13 16:45] LABS: ALT/SGPT 28 U/L (<40); AST/SGOT 62 U/L (<40); Albumin 3.3 gm/dL (3.2-5.2); Alkaline Phosphatase 75 U/L (39-117); Bilirubin,Total 5.4 mg/dL (0.1-1.0); Blood Urea Nitrogen 13 mg/dL (8-23); Calcium 9.5 mg/dL (8.6-10.4); Carbon Dioxide 25 mmol/L (22-30); Chloride 105 mmol/L (96-108); Globulin 3.2 gm/dL (2.2-3.7); Glomerular Filtration Rate 78; Glucose 110 mg/dL (70-105)
[2021-04-13] MEDS ORDERED: LACTULOSE 20 GM/30 ML ORAL.SOL PO ONE ×2 (16:45→18:41)
--- NOTE | 2021-04-13 17:25 | Emergency Department Note ---
HPI General Chief complaint: Fall Stated complaint: Fall/alt. mental status Time Seen by Provider: 04/13/21 13:48 Source: patient Mode of arrival: wheelchair Limitations: no limitations History of Present Illness HPI Narrative: This a 65-year-old male with history of alcoholic liver cirrhosis who presents with altered mental status. Law enforcement was called 3 times today because neighbors found him outside confused and stumbling around. His sister says that he was found yesterday outside with his close off and confused. He lives independently at an apartment in the [place] and she states that he has not been eating the food that is delivered to him by [employer]. She states that he has been declining over the last months and she felt his confusion was apparent 2 weeks ago. She states that he has been on lactulose, but it seems he has been out of this for some time. They called [employer] [facility] to have it delivered, but they cannot get it to him until this morning. Patient states that he has fallen and now has left-sided rib pain. He states that he is very unsteady on his feet. They do not have caregivers in the home. His sister is his DPOA for medical decision making. She is interested in finding him placement as she does not feel that he is capable of caring for himself. She also has come concerns about hallucinations as he was confused stating that he had heard from a family member this morning. Liver ultrasound in 10/28 that showed stable cirrhosis. Related Data Home Medications Medication Instructions Recorded Confirmed lisinopril 2.5 mg PO DAILY 03/02/15 09/01/19 acetaminophen 650 mg PO Q6H PRN 05/31/17 09/01/19 albuterol sulfate 90 mcg/actuation 2 puff INHALATION QID g 05/31/17 09/01/19 aerosol inhaler chlorthalidone 25 mg tablet 12.5 mg PO QDAY tab 05/31/17 09/01/19 ergocalciferol (vitamin D2) 1,250 50,000 unit PO QWEEK 05/31/17 09/01/19 mcg (50,000 unit) capsule folic acid 1 mg tablet 1 mg PO QAM tab 05/31/17 09/01/19 hydrocortisone 1 applic TOPICAL BID PRN 05/31/17 09/01/19 Previous Rx's Medication Instructions Recorded lactulose 20 gm PO TID oral.zahra 03/18/18 thiamine mononitrate (vit B1) 100 mg PO DAILY tablet 03/18/18 Allergies Allergy/AdvReac Type Severity Reaction Status Date / Time aspirin [ASPIRIN] Allergy Unknown unkown Verified 04/13/21 13:28 NSAIDS (Non-Steroidal Allergy Unknown Unknown Verified 04/13/21 13:28 Anti-Inflamma Review of Systems ROS ROS Narrative: Narrative: All systems ED: reviewed and negative except as stated. [facility] Narrative Patient History Narrative: Narrative: Medical/Surgical/Family History All Active Problems (Updated 04/13/21 @ 18:55 by Ana Gao PA-C) Generalized weakness (Acute) Dementia (Acute) Confusion (Acute) Acute hepatic encephalopathy (Acute) Alcoholic cirrhosis of liver (Acute) Acute dehydration (Acute) Alcohol abuse (Chronic) Cirrhosis of liver (Chronic) Amphetamine abuse (Chronic) Hypertension (Chronic) Pulmonary hypertension (Chronic) Marijuana use (Chronic) Elevated transaminase level (Chronic) Hyperbilirubinemia (Chronic) Chronic hip pain (Chronic) Chronic neck pain (Chronic) Chronic back pain (Chronic) Neuropathy (Chronic) Anemia (Chronic) Reactive airway disease (Chronic) Cholelithiasis (Chronic) Medical History Alcohol abuse Amphetamine abuse Anemia Cholelithiasis Chronic back pain Chronic hip pain Chronic neck pain Cirrhosis of liver Closed left hip fracture Elevated transaminase level Fracture of femur Hyperbilirubinemia Hypertension Marijuana use Neuropathy Pulmonary hypertension see Echo 08/27/[address] Almodovar. Reactive airway disease Rib fractures Right inguinal hernia Herniorrhaphy, right; [facility] Urinary tract infection Surgical History History of open reduction and internal fixation (ORIF) procedure Left hip Family History Father Heart disease Stroke Brother Heart disease Other Mental status, decreased Social History Smoking Status: Never smoker Alcohol Intake Frequency: a few times a month Substance Use: other Exam Narrative Narrative: General: Alert and oriented x3, NAD, nontoxic appearing. Arousable and answering questions appropriately. HEENT: PERRL, EOMI, normocephalic. Dry mucous membranes. Normal facies and upper and lower dentures in place. Chest: Symmetric, painful to palpation along the left lateral ribs. No ecchymosis, no crepitus. Respiratory: Lungs clear to auscultation bilaterally. No respiratory distress. Unlabored breathing. Heart: Regular rate and rhythm, no murmurs/clicks/rubs. Abdomen: Non-tender, Non distended, no ascites. Hypoactive bowel tones. No organomegaly. Extremities: Warm and well perfused. No edema. DP 2+ bilaterally. No venous stasis. Neuro: No focal deficits. Cranial nerves II-XII grossly normal. Moves all 4 spontaneously Skin: Warm dry, no rashes or lesions, no cyanosis. Psych: Lethargic mood and affect Heme/Lymph: No abnormal bruising General Limitations: no limitations Course Course Course Narrative: 65-year-old male with alcoholic liver cirrhosis presents with acute altered mental status Reevaluation(s) Reevaluation #1: Obtain CBC, CMP, chest x-ray, urinalysis and culture Obtain IV access and give 1 L IV fluids for dehydration Check ammonia level---> ammonia elevated 84 we will give 20 mg of oral lactulose now Given patient's altered mental status and inability to care for himself at home, he will likely need admission for stabilization and placement. We will wait on the rest of his labs before requesting a bed. Reevaluation #2: Chest x-ray with no acute rib fractures and normal parenchyma without infiltrates or pleural effusions. Vital Signs Vital signs: Vital Signs Temperature 97.2 F 04/13/21 13:24 Pulse Rate 91 H 04/13/21 13:24 Respiratory Rate 18 04/13/21 13:24 Blood Pressure 121/79 04/13/21 13:24 Pulse Oximetry (%) 92 04/13/21 13:24 Temperature 97.2 F 04/13/21 13:24 Pulse Rate 76 04/13/21 18:46 Respiratory Rate 18 04/13/21 13:24 Blood Pressure 89/61 04/13/21 18:46 Pulse Oximetry (%) 91 04/13/21 18:46 MDM MDM Narrative Medical decision making narrative: Hepatic encephalopathy Acute altered mental status Self-care deficits Patient has significant self care deficits with ongoing confusion and he will not be safe to discharge to his home. He does not have caregivers available to assist with his care this evening and will need admission for stabilization of his hepatic encephalopathy and assistance with placement. I have reached out to the hospitalist for a bed and awaiting a call back. Hospitalist has accepted the patient for admission. Lab Data Result diagrams: 04/13/21 15:57 04/13/21 15:57 Labs: Lab Results 04/13/21 04/13/21 04/13/21 Range/Units 14:00 14:00 14:00 WBC (4.5-11.0) K/mcL RBC (4.63-6.08) M/mcL Hgb (13.7-17.5) g/dL Hct (40.1-51.0) % POC Hct 42 (41-55) % MCV (80.0-100.0) fL MCH (26.0-34.0) pg MCHC (31.0-36.0) g/dL RDW (11.5-14.5) % Plt Count (140-440) K/mcL MPV (7.4-10.4) fL Seg Neutrophils % (38-78) % Lymphocytes % (15-49) % Monocytes % (Manual) (1-12) % Eosinophils % (Manual) (0-7) % Basophils % (Manual) (0-2) % Reactive Lymphocytes (0-2) % Platelet Estimate (Normal) RBC Morphology (Normal) PT 17.3 H (11.9-14.5) sec INR 1.4 H (0.9-1.1) POC Sodium 142 (133-145) mEq/L Sodium TNP POC Potassium 3.9 (3.3-5.1) mEql/L Potassium TNP POC Chloride 103 (96-108) mEq/L Chloride TNP Carbon Dioxide TNP POC Total CO2 26 (22-30) mmol/L Anion Gap TNP POC BUN 21 H (6-20) mg/dL BUN TNP Creatinine TNP POC Creatinine 1.2 (0.6-1.2) mg/dL GFR Calculation TNP Glucose TNP POC Glucose 67 L (70-105) mg/dL Calcium TNP POC WB Ioniz Calcium 1.19 (1.16-1.32) mmEq/L Total Bilirubin TNP AST TNP ALT TNP Alkaline Phosphatase TNP Ammonia (16-60) umol/L Total Protein TNP Albumin TNP Globulin TNP Albumin/Globulin Ratio TNP Urine Color Urine Appearance (Clear) Urine pH (5.0-9.0) Ur Specific [place] (1.000-1.035) Urine Protein (Negative) mg/dL Urine Glucose (UA) (Negative) mg/dL Urine Ketones (Negative) mg/dL Urine Occult Blood (Negative) mg/dL Urine Nitrate (Negative) Urine Bilirubin (Negative) mg/dL Urine Urobilinogen mg/dL Ur Leukocyte Esterase (Negative) /uL Urine RBC (0-3) /hpf Urine WBC (0-4) /hpf Ur Squamous Epith Cells (0-4) /hpf Urine Bacteria (0) /hpf Hyaline Casts (0-2) /lph Urine Mucus (None) /hpf Ur Culture Indicated? 04/13/21 04/13/21 04/13/21 Range/Units 14:22 15:57 15:57 WBC 4.5 (4.5-11.0) K/mcL RBC 4.43 L (4.63-6.08) M/mcL Hgb 14.4 (13.7-17.5) g/dL Hct 40.2 (40.1-51.0) % POC Hct (41-55) % MCV 90.7 (80.0-100.0) fL MCH 32.5 (26.0-34.0) pg MCHC 35.8 (31.0-36.0) g/dL RDW 13.3 (11.5-14.5) % Plt Count 96 L (140-440) K/mcL MPV 11.7 H (7.4-10.4) fL Seg Neutrophils % 53 (38-78) % Lymphocytes % 30 (15-49) % Monocytes % (Manual) 8 (1-12) % Eosinophils % (Manual) 4 (0-7) % Basophils % (Manual) 2 (0-2) % Reactive Lymphocytes 3 H (0-2) % Platelet Estimate Decreased A (Normal) RBC Morphology Normal (Normal) PT (11.9-14.5) sec INR (0.9-1.1) POC Sodium (133-145) mEq/L Sodium 141 POC Potassium (3.3-5.1) mEql/L Potassium 3.3 POC Chloride (96-108) mEq/L Chloride 105 Carbon Dioxide 25 POC Total CO2 (22-30) mmol/L Anion Gap 11.0 POC BUN (6-20) mg/dL BUN 13 Creatinine 1.0 POC Creatinine (0.6-1.2) mg/dL GFR Calculation 78 Glucose 110 H POC Glucose (70-105) mg/dL Calcium 9.5 POC WB Ioniz Calcium (1.16-1.32) mmEq/L Total Bilirubin 5.4 H AST 62 H ALT 28 Alkaline Phosphatase 75 Ammonia 87 H (16-60) umol/L Total Protein 6.5 Albumin 3.3 Globulin 3.2 Albumin/Globulin Ratio 1.0 Urine Color Urine Appearance (Clear) Urine pH (5.0-9.0) Ur Specific [place] (1.000-1.035) Urine Protein (Negative) mg/dL Urine Glucose (UA) (Negative) mg/dL Urine Ketones (Negative) mg/dL Urine Occult Blood (Negative) mg/dL Urine Nitrate (Negative) Urine Bilirubin (Negative) mg/dL Urine Urobilinogen mg/dL Ur Leukocyte Esterase (Negative) /uL Urine RBC (0-3) /hpf Urine WBC (0-4) /hpf Ur Squamous Epith Cells (0-4) /hpf Urine Bacteria (0) /hpf Hyaline Casts (0-2) /lph Urine Mucus (None) /hpf Ur Culture Indicated? 04/13/21 Range/Units 17:16 WBC (4.5-11.0) K/mcL RBC (4.63-6.08) M/mcL Hgb (13.7-17.5) g/dL Hct (40.1-51.0) % POC Hct (41-55) % MCV (80.0-100.0) fL MCH (26.0-34.0) pg MCHC (31.0-36.0) g/dL RDW (11.5-14.5) % Plt Count (140-440) K/mcL MPV (7.4-10.4) fL Seg Neutrophils % (38-78) % Lymphocytes % (15-49) % Monocytes % (Manual) (1-12) % Eosinophils % (Manual) (0-7) % Basophils % (Manual) (0-2) % Reactive Lymphocytes (0-2) % Platelet Estimate (Normal) RBC Morphology (Normal) PT (11.9-14.5) sec INR (0.9-1.1) POC Sodium (133-145) mEq/L Sodium POC Potassium (3.3-5.1) mEql/L Potassium POC Chloride (96-108) mEq/L Chloride Carbon Dioxide POC Total CO2 (22-30) mmol/L Anion Gap POC BUN (6-20) mg/dL BUN Creatinine POC Creatinine (0.6-1.2) mg/dL GFR Calculation Glucose POC Glucose (70-105) mg/dL Calcium POC WB Ioniz Calcium (1.16-1.32) mmEq/L Total Bilirubin AST ALT Alkaline Phosphatase Ammonia (16-60) umol/L Total Protein Albumin Globulin Albumin/Globulin Ratio Urine Color Jenna Urine Appearance Hazy A (Clear) Urine pH 5.0 (5.0-9.0) Ur Specific [place] 1.023 (1.000-1.035) Urine Protein 30 A (Negative) mg/dL Urine Glucose (UA) Negative (Negative) mg/dL Urine Ketones 5 A (Negative) mg/dL Urine Occult Blood 0.20 (Negative) mg/dL Urine Nitrate Negative (Negative) Urine Bilirubin Negative (Negative) mg/dL Urine Urobilinogen 4.0 A mg/dL Ur Leukocyte Esterase Negative (Negative) /uL Urine RBC 37 H (0-3) /hpf Urine WBC 3 (0-4) /hpf Ur Squamous Epith Cells < 1 (0-4) /hpf Urine Bacteria None (0) /hpf Hyaline Casts 9 H (0-2) /lph Urine Mucus Few A (None) /hpf Ur Culture Indicated? No ED POC Tests ED POC Tests: [facility] - SARS Antigen Negative Discharge Plan Patient/Caregiver Discharge Instructions Pt seen by [facility] only: Yes Clinical Impression: Acute hepatic encephalopathy, Alcoholic cirrhosis of liver, Acute dehydration Patient Disposition: Xfer As Inpt ([facility]) Condition: Fair Follow up with: Leeann Peterson MD [Primary Care Provider] - Prescriptions: No Action chlorthalidone 25 mg tablet 12.5 mg PO QDAY RF: 0 ergocalciferol (vitamin D2) 50,000 unit capsule 50,000 unit PO QWEEK RF: 0 folic acid 1 mg tablet 1 mg PO QAM RF: 0 albuterol sulfate [Proventil HFA] 90 mcg/actuation HFA aerosol inhaler 2 puff INHALATION QID RF: 0 acetaminophen 650 mg PO Q6H PRN (Reason: Pain) RF: 0 hydrocortisone 1 applic TOPICAL BID PRN (Reason: Itching) RF: 0 lisinopril 20 MG Tablet 2.5 mg PO DAILY RF: 0 thiamine mononitrate (vit B1) 100 MG Tablet 100 mg PO DAILY RF: 0 lactulose 20 GM/30 ML Oral.Zahra 20 gm PO TID RF: 0
[2021-04-13 17:51] LABS: Basophils % (Manual) 2 % (0-2); Eosinophils % (Manual) 4 % (0-7); Lymphocytes % 30 % (15-49); Monocytes % (Manual) 8 % (1-12); Platelet Estimate DECREASED (Normal); RBC Morphology NORMAL (Normal); Reactive Lymphocytes 3 % (0-2); Segmented Neutrophils % 53 % (38-78)
[2021-04-13 17:52] LABS: INR 1.4 (0.9-1.1); Prothrombin Time 17.3 sec (11.9-14.5)
--- NOTE | 2021-04-13 17:53 | XRay Report ---
INDICATION: r/o left rib fxs TECHNIQUE: AP portable semiupright chest x-ray COMPARISON: Previous chest x-rays dated 09/01/2019, 04/12/2018 FINDINGS: Lungs:No focal pulmonary parenchymal infiltrate or mass. Heart, vascular:No significant cardiomegaly. Pulmonary vascularity is normal. No pulmonary edema or pulmonary congestion Mediastinum, brenda:No mediastinal widening. No hilar mass Pleura:No pleural fluid. No pleural-based mass or calcification Skeletal:There are bilateral nonacute rib fractures. Appearance is unchanged since 09/01/2019. Scapula and clavicles are negative IMPRESSION: 1. Nonacute bilateral rib fractures 2. No acute abnormality Interpreted and Authenticated by: Migel Sanchez 04/13/21
[2021-04-13 17:54] LABS: Hematocrit 40.2 % (40.1-51.0); Hemoglobin 14.4 g/dL (13.7-17.5); Mean Cell Volume 90.7 fL (80.0-100.0); Mean Corpuscular HGB Conc 35.8 g/dL (31.0-36.0); Mean Platelet Volume 11.7 fL (7.4-10.4); Platelet Count 96 K/mcL (140-440); RBC 4.43 M/mcL (4.63-6.08); Red Cell Distribution Width 13.3 % (11.5-14.5); WBC 4.5 K/mcL (4.5-11.0)
[2021-04-13 18:11] LABS: Appearance,Urine HAZY (Clear); Bilirubin,Urine Negative (Negative); Color,Urine AMBER; Culture Indicated,Urine No; Glucose,Urine (UA) Negative (Negative); Ketones,Urine 5 mg/dL (Negative); Leukocyte Esterase,Urine Negative /uL (Negative); Mucus,Urine FEW /hpf; Nitrate,Urine Negative (Negative); Protein,Urine 30 mg/dL (Negative); Specific Gravity,Urine 1.023 (1.000-1.035); Urine Hyaline Cast 9 /lph (0-2); Urine RBC 37 /hpf (0-3); Urine Squamous Epithelial Cell < 1 /hpf (0-4); Urine WBC 3 /hpf (0-4)
--- NOTE | 2021-04-13 18:56 | Internal Med History&Physical ---
HPI History of Present Illness Patient information: Note initiated : 04/13/21 at 6:49 pm Service Date, if different from initiated Date: [] Patient: Romero Goodman 65 y/o M admitted on for Fall, Altered Mental Status. Chief Complaint: [] History of present illness: Mr. Goodman is a 65 year old M Brought in for confusion. Nilesh bates was called 3 times today because neighbors found him stumbling outside and confused. He lives by himself in apartment. His sister says she thinks he is out of lactulose and has not had it for a while. Patient a mildly elevated ammonia. And was confused in the ED but was able to take lactulose orally. Unable to gather accurate review of systems given mild altered state and his dentures do not seem to be fitting. PFSH PFSH All Active Problems (Updated 04/13/21 @ 18:55 by Ana Gao PA-C) Generalized weakness (Acute) Dementia (Acute) Confusion (Acute) Acute hepatic encephalopathy (Acute) Alcoholic cirrhosis of liver (Acute) Acute dehydration (Acute) Alcohol abuse (Chronic) Cirrhosis of liver (Chronic) Amphetamine abuse (Chronic) Hypertension (Chronic) Pulmonary hypertension (Chronic) Marijuana use (Chronic) Elevated transaminase level (Chronic) Hyperbilirubinemia (Chronic) Chronic hip pain (Chronic) Chronic neck pain (Chronic) Chronic back pain (Chronic) Neuropathy (Chronic) Anemia (Chronic) Reactive airway disease (Chronic) Cholelithiasis (Chronic) Medical History Alcohol abuse Amphetamine abuse Anemia Cholelithiasis Chronic back pain Chronic hip pain Chronic neck pain Cirrhosis of liver Closed left hip fracture Elevated transaminase level Fracture of femur Hyperbilirubinemia Hypertension Marijuana use Neuropathy Pulmonary hypertension see Echo 08/27/[address] Almodovar. Reactive airway disease Rib fractures Right inguinal hernia Herniorrhaphy, right; [facility] Urinary tract infection Surgical History History of open reduction and internal fixation (ORIF) procedure Left hip Family History Father Heart disease Stroke Brother Heart disease Other Mental status, decreased Social History (Updated 07/08/17 @ 14:17 by Faustina Ruiz MD) alcohol intake frequency: a few times a month substance use type: other details: not specified MEDS/ALLERGIES Home Medications and Allergies Home Medications Medication Instructions Recorded Confirmed Type lisinopril 2.5 mg PO DAILY 03/02/15 09/01/19 History acetaminophen 650 mg PO Q6H PRN 05/31/17 09/01/19 History albuterol sulfate 90 mcg/actuation 2 puff INHALATION QID g 05/31/17 09/01/19 History aerosol inhaler chlorthalidone 25 mg tablet 12.5 mg PO QDAY tab 05/31/17 09/01/19 History ergocalciferol (vitamin D2) 1,250 50,000 unit PO QWEEK 05/31/17 09/01/19 History mcg (50,000 unit) capsule folic acid 1 mg tablet 1 mg PO QAM tab 05/31/17 09/01/19 History hydrocortisone 1 applic TOPICAL BID PRN 05/31/17 09/01/19 History lactulose 20 gm PO TID oral.tayla 03/18/18 09/01/19 Rx thiamine mononitrate (vit B1) 100 mg PO DAILY tablet 03/18/18 09/01/19 Rx Allergies Allergy/AdvReac Type Severity Reaction Status Date / Time aspirin [ASPIRIN] Allergy Unknown unkown Verified 04/13/21 13:28 NSAIDS (Non-Steroidal Allergy Unknown Unknown Verified 04/13/21 13:28 Anti-Inflamma EXAM Constitutional Vitals: Temp Pulse Resp BP Pulse Ox 97.2 F 76 18 89/61 91 04/13/21 13:24 04/13/21 18:46 04/13/21 13:24 04/13/21 18:46 04/13/21 18:46 Exam: General: Drowsy but awakens, no acute Distress Eyes/N/T: EOMI, PERRL, dry MM Head/Neck: neck supple, normocephalic atraumatic CV: RRR, No murmurs, normal s1/s2 Pulm: Clear b/l, no wheezing/rhonchi/rales Abd: soft, nontender, +BS x4 Ext: no clubbing/cyanosis/edema Neuro: Drowsy but awakens, no focal deficits, moves all extremities, CN 2-12 grossly intact, symmetrical strength b/l upper/lower, sensations intact b/l upper/lower, follows commands Skin: warm/dry DATA Data Completed and Pending Labs: Labs from last 24 hours 04/13/21 04/13/21 04/13/21 17:16 15:57 15:57 WBC 4.5 RBC 4.43 L Hgb 14.4 Hct 40.2 POC Hct MCV 90.7 MCH 32.5 MCHC 35.8 RDW 13.3 Plt Count 96 L MPV 11.7 H Seg Neutrophils % 53 Lymphocytes % 30 Monocytes % (Manual) 8 Eosinophils % (Manual) 4 Basophils % (Manual) 2 Reactive Lymphocytes 3 H Platelet Estimate Decreased A RBC Morphology Normal PT INR POC Sodium Sodium 141 POC Potassium Potassium 3.3 POC Chloride Chloride 105 Carbon Dioxide 25 POC Total CO2 Anion Gap 11.0 POC BUN BUN 13 Creatinine 1.0 POC Creatinine GFR Calculation 78 Glucose 110 H POC Glucose Calcium 9.5 POC WB Ioniz Calcium Total Bilirubin 5.4 H AST 62 H ALT 28 Alkaline Phosphatase 75 Ammonia Total Protein 6.5 Albumin 3.3 Globulin 3.2 Albumin/Globulin Ratio 1.0 Urine Color Jenna Urine Appearance Hazy A Urine pH 5.0 Ur Specific [place] 1.023 Urine Protein 30 A Urine Glucose (UA) Negative Urine Ketones 5 A Urine Occult Blood 0.20 Urine Nitrate Negative Urine Bilirubin Negative Urine Urobilinogen 4.0 A Ur Leukocyte Esterase Negative Urine RBC 37 H Urine WBC 3 Ur Squamous Epith Cells < 1 Urine Bacteria None Hyaline Casts 9 H Urine Mucus Few A Ur Culture Indicated? No 04/13/21 04/13/21 04/13/21 14:22 14:00 14:00 WBC RBC Hgb Hct POC Hct MCV MCH MCHC RDW Plt Count MPV Seg Neutrophils % Lymphocytes % Monocytes % (Manual) Eosinophils % (Manual) Basophils % (Manual) Reactive Lymphocytes Platelet Estimate RBC Morphology PT 17.3 H INR 1.4 H POC Sodium Sodium TNP POC Potassium Potassium TNP POC Chloride Chloride TNP Carbon Dioxide TNP POC Total CO2 Anion Gap TNP POC BUN BUN TNP Creatinine TNP POC Creatinine GFR Calculation TNP Glucose TNP POC Glucose Calcium TNP POC WB Ioniz Calcium Total Bilirubin TNP AST TNP ALT TNP Alkaline Phosphatase TNP Ammonia 87 H Total Protein TNP Albumin TNP Globulin TNP Albumin/Globulin Ratio TNP Urine Color Urine Appearance Urine pH Ur Specific [place] Urine Protein Urine Glucose (UA) Urine Ketones Urine Occult Blood Urine Nitrate Urine Bilirubin Urine Urobilinogen Ur Leukocyte Esterase Urine RBC Urine WBC Ur Squamous Epith Cells Urine Bacteria Hyaline Casts Urine Mucus Ur Culture Indicated? 04/13/21 14:00 WBC RBC Hgb Hct POC Hct 42 MCV MCH MCHC RDW Plt Count MPV Seg Neutrophils % Lymphocytes % Monocytes % (Manual) Eosinophils % (Manual) Basophils % (Manual) Reactive Lymphocytes Platelet Estimate RBC Morphology PT INR POC Sodium 142 Sodium POC Potassium 3.9 Potassium POC Chloride 103 Chloride Carbon Dioxide POC Total CO2 26 Anion Gap POC BUN 21 H BUN Creatinine POC Creatinine 1.2 GFR Calculation Glucose POC Glucose 67 L Calcium POC WB Ioniz Calcium 1.19 Total Bilirubin AST ALT Alkaline Phosphatase Ammonia Total Protein Albumin Globulin Albumin/Globulin Ratio Urine Color Urine Appearance Urine pH Ur Specific [place] Urine Protein Urine Glucose (UA) Urine Ketones Urine Occult Blood Urine Nitrate Urine Bilirubin Urine Urobilinogen Ur Leukocyte Esterase Urine RBC Urine WBC Ur Squamous Epith Cells Urine Bacteria Hyaline Casts Urine Mucus Ur Culture Indicated? A/P Narrative A/P Narrative: A: *Hepatic encephalopathy: 2/2 med noncompliance *Alcoholic cirrhosis: Patient states he has not had a drink in years. -with thrombocytopenia and esophageal varices *h/o substance abuse: Denies active drug use *Self-care deficits P: -lactulose titrate to 2-3 soft BM's day -IVF tonight -check UDS/BAL - -f/u outpt with GI/PCP -Medication reconciliation -PT/OT -CM for placement -ppx: Lovenox (hold for plts<50k) Time Spent With Patient Time: Total time spent is greater than 50% in coordination of care (as documented) at patient's floor/unit and/or counseling patient:
[2021-04-13] MEDS ORDERED: POTASSIUM CHLORIDE 20 MEQ TABLET PO PRN ×2 (21:03)
[2021-04-13] MEDS ORDERED: POTASSIUM CHLORIDE 40 MEQ in DEXTROSE 5% IN WATER 500 ML IV PRN (21:03)
[2021-04-13] MEDS ORDERED: 0.9 % SODIUM CHLORIDE 1,000 ML IV SCH (21:03)
[2021-04-13] MEDS ORDERED: ONDANSETRON 4 MG/2 ML VIAL IV PRN (21:03)
[2021-04-13] MEDS ORDERED: MAGNESIUM SULFATE 2 GM/50 ML BAG IV PRN (21:03)
[2021-04-13] MEDS ORDERED: IPRATROPIUM/ALBUTEROL 3 ML AMPUL.NEB NEB PRN (21:03)
[2021-04-13] MEDS ORDERED: ACETAMINOPHEN 325 MG TABLET PO PRN (21:03)
[2021-04-13] MEDS: LACTULOSE 20 GM/30 ML ORAL.SOL PO SCH (22:11)
[2021-04-13] MEDS: 0.9 % SODIUM CHLORIDE 10 ML SYRINGE IV SCH (22:11)
[2021-04-14 00:24] LABS: Alcohol, Blood < 10.0 mg/dL; Alcohol,Blood < 0.010 gm/dL (<0.010)
[2021-04-14] MEDS: 0.9 % SODIUM CHLORIDE 10 ML SYRINGE IV SCH ×3 (05:59→20:27)
[2021-04-14 07:03] LABS: Basophils # (Auto) 0.05 K/mcL (0.00-0.30); Basophils % (Auto) 1.1 % (0.0-2.0); Eosinophils # (Auto) 0.14 K/mcL (0.00-0.70); Eosinophils % (Auto) 3.1 % (0.0-7.0); Hematocrit 42.1 % (40.1-51.0); Hemoglobin 14.7 g/dL (13.7-17.5); Lymphocytes # (Auto) 1.23 K/mcL (1.50-4.80); Lymphocytes % (Auto) 27.3 % (15.5-49.0); Mean Cell Volume 91.5 fL (80.0-100.0); Mean Corpuscular HGB Conc 34.9 g/dL (31.0-36.0); Mean Platelet Volume 11.8 fL (7.4-10.4); Monocytes # (Auto) 0.69 K/mcL (0.10-0.90); Monocytes % (Auto) 15.3 % (1.0-12.0); Neutrophils % (Auto) 53.2 % (38.0-78.0); Platelet Count 83 K/mcL (140-440); Red Cell Distribution Width 13.6 % (11.5-14.5); WBC 4.5 K/mcL (4.5-11.0)
--- NOTE | 2021-04-14 07:37 | Internal Med Progress Note ---
SUBJECTIVE Subjective Patient information: Note initiated : 04/14/21 at 7:34 am Service Date, if different from initiated Date: [] Patient: Romero Goodman 65 y/o M admitted on 04/13/21 for Fall, Altered Mental Status. Chief Complaint: [] Interval history: History of present illness: Mr. Goodman is a 65 year old M Brought in for confusion. [facility] was called 3 times today because neighbors found him stumbling outside and confused. He lives by himself in apartment. His sister says she thinks he is out of lactulose and has not had it for a while. Patient a mildly elevated ammonia. And was confused in the ED but was able to take lactulose orally. Unable to gather accurate review of systems given mild altered state and his dentures do not seem to be fitting. 04/14 Patient sitting up in chair eating breakfast, mentation much improved. No new complaints overnight events. Low magnesium, mildly low potassium. Good BMs last night with lactulose. Review of Systems: denies headache/fever/chills/nausea/vomiting/chest or abdominal pain /cough/dyspnea/diarrhea. Otherwise see above. Constitutional Vitals: Vital Signs Temp Pulse Resp BP Pulse Ox 97.5 F 78 22 118/78 95 04/14/21 04:14 04/13/21 20:59 04/14/21 04:14 04/14/21 04:14 04/14/21 04:14 Period Temp Pulse Resp BP Sys/Ronquillo Pulse Ox Last 24 Hr 96.8 F-97.5 F 66-91 14-22 89-125/58-85 90-98 Intake and Output 04/13/21 04/14/21 04/14/21 21:59 05:59 13:59 Intake Total 1000 240 Output Total 75 825 Balance 925 -585 Weight 65.062 kg Intake & Output: Intake & Output 04/13/21 04/14/21 04/14/21 21:59 05:59 13:59 Intake Total 1000 240 Output Total 75 825 Balance 925 -585 Weight 65.062 kg Intake: IV 1000 Sodium Chloride 0.9% 1,000 ml @ 1000 Wide Open IV BOLUS ONE Rx#: [id number] Oral 240 Output: Void Amount 75 Urine/Stool Mix 825 Other: Urine Appearance Clear Urine Color Dark Jenna Urine Odor Normal Stool Color Brown Stool Consistency Dry and Hard Loose Exam: General: awake, no acute Distress Eyes/N/T: EOMI, Head/Neck: neck supple, CV: RRR, No murmurs, Pulm: Clear b/l, no wheezing/rhonchi/rales Abd: soft, nontender, +BS x4 Ext: no clubbing/cyanosis/edema Neuro: A&Ox4, no focal deficits, moves all extremities, Skin: warm/dry OBJ DATA Labs CBC & Chem 7: 04/14/21 05:57 04/14/21 05:57 Labs: Abnormal Lab Results 04/14/21 04/13/21 04/13/21 05:57 17:16 15:57 RBC 4.60 L 4.43 L Plt Count 83 L 96 L MPV 11.8 H 11.7 H [place] % (Auto) 15.3 H Lymph # (Auto) 1.23 L Reactive Lymphocytes 3 H Platelet Estimate Decreased A PT INR POC BUN Glucose POC Glucose Total Bilirubin AST Ammonia Urine Appearance Hazy A Urine Protein 30 A Urine Ketones 5 A Urine Urobilinogen 4.0 A Urine RBC 37 H Hyaline Casts 9 H Urine Mucus Few A 04/13/21 04/13/21 04/13/21 15:57 14:22 14:00 RBC Plt Count MPV [place] % (Auto) Lymph # (Auto) Reactive Lymphocytes Platelet Estimate PT 17.3 H INR 1.4 H POC BUN Glucose 110 H POC Glucose Total Bilirubin 5.4 H AST 62 H Ammonia 87 H Urine Appearance Urine Protein Urine Ketones Urine Urobilinogen Urine RBC Hyaline Casts Urine Mucus 04/13/21 14:00 RBC Plt Count MPV [place] % (Auto) Lymph # (Auto) Reactive Lymphocytes Platelet Estimate PT INR POC BUN 21 H Glucose POC Glucose 67 L Total Bilirubin AST Ammonia Urine Appearance Urine Protein Urine Ketones Urine Urobilinogen Urine RBC Hyaline Casts Urine Mucus Meds: Medications Acetaminophen (Acetaminophen 325 Mg Tablet) 650 mg PO Q6HP PRN; Protocol PRN Reason: Per Pain Protocol/Fever > 101 Albuterol/Ipratropium (Ipratropium/Albuterol 3 Ml Ampul.Neb) 3 ml NEB Q4HP PRN PRN Reason: Shortness Of Breath Enoxaparin Sodium (Enoxaparin 40 Mg/0.4 Ml Syringe) 40 mg SQ DAILY [facility] Potassium Chloride 40 meq/ (Dextrose) 520 mls @ 130 mls/hr IV UD PRN PRN Reason: Potassium < 3 Magnesium Sulfate (Magnesium Sulfate) 2 gm in 50 mls @ 50 mls/hr IV UD PRN PRN Reason: Magnesium </= 1.6 Sodium Chloride (Sodium Chloride 0.9%) 1,000 mls @ 75 mls/hr IV .[id number] [facility] Stop: 04/14/21 10:22 Last Admin: 04/13/21 22:11 Dose: 75 mls/hr Documented by: Lactulose (Lactulose 20 Gm/30 Ml Oral.Zahra) 20 gm PO TID [facility] Last Admin: 04/13/21 22:11 Dose: 20 gm Documented by: Ondansetron HCl (Ondansetron 4 Mg/2 Ml Vial) 4 mg IV Q4HP PRN PRN Reason: Nausea And Vomiting Potassium Chloride (Potassium Chloride 20 Meq Tablet) 40 meq PO UD PRN PRN Reason: Potssium is 3-3.5 Potassium Chloride (Potassium Chloride 20 Meq Tablet) 40 meq PO UD PRN PRN Reason: Potassium < 3 Sodium Chloride (0.9 % Sodium Chloride 10 Ml Syringe) 10 ml IV Q8 [facility] Last Admin: 04/14/21 05:59 Dose: Not Given Documented by: A/P Narrative A/P Narrative: A: *Hepatic encephalopathy: 2/2 med noncompliance *Alcoholic cirrhosis: Patient states he has not had a drink in years. -with thrombocytopenia and esophageal varices *h/o substance abuse: Denies active drug use *Self-care deficits *Hypokalemia/hypomagnesemia: P: -lactulose titrate to 2-3 soft BM's day -d/c IVF -check UDS -f/u outpt with GI/PCP -Medication reconciliation -hold ACEI for low normal BP -PT/OT -CM for placement -ppx: Lovenox (hold for plts<50k) Time Spent With Patient Time: Total time spent is greater than 50% in coordination of care (as documented) at patient's floor/unit and/or counseling patient:
[2021-04-14 07:49] LABS: ALT/SGPT 27 U/L (<40); AST/SGOT 60 U/L (<40); Alkaline Phosphatase 81 U/L (39-117); Bilirubin,Direct 0.5 mg/dL (<0.3); Bilirubin,Total 4.6 mg/dL (0.1-1.0); Blood Urea Nitrogen 11 mg/dL (8-23); Calcium 8.9 mg/dL (8.6-10.4); Carbon Dioxide 21 mmol/L (22-30); Chloride 110 mmol/L (96-108); Globulin 3.1 gm/dL (2.2-3.7); Glomerular Filtration Rate 99; Glucose 100 mg/dL (70-105); Lactate Dehydrogenase 408 U/L (135-225); Phosphorous 2.9 mg/dL (2.5-4.5); Triglycerides 46 mg/dL (<150); Uric Acid 7.5 mg/dL (2.5-8.0)
[2021-04-14] MEDS ORDERED: POTASSIUM CHLORIDE 20 MEQ TABLET PO ONE (08:24)
[2021-04-14] MEDS ORDERED: MAGNESIUM SULFATE 2 GM/50 ML BAG IV ONE (08:24)
[2021-04-14 09:04] LABS: Amphetamine Screen,Urine Suspect positive; Barbiturate Screen,Urine None detected; Benzodiazepines Screen,Urine None detected; Cannabinoid Screen,Urine None detected; Cocaine Screen,Urine None detected; Opiate Screen,Urine None detected; Oxycodone, Urine Screen None detected; Phencyclidine Screen,Urine None detected
[2021-04-14] MEDS: LACTULOSE 20 GM/30 ML ORAL.SOL PO SCH ×3 (09:06→20:25)
[2021-04-14] MEDS: ENOXAPARIN 40 MG/0.4 ML SYRINGE SQ SCH (09:07)
[2021-04-15] MEDS: 0.9 % SODIUM CHLORIDE 10 ML SYRINGE IV SCH ×3 (04:43→21:34)
[2021-04-15 06:56] LABS: Basophils # (Auto) 0.03 K/mcL (0.00-0.30); Basophils % (Auto) 0.6 % (0.0-2.0); Eosinophils # (Auto) 0.21 K/mcL (0.00-0.70); Eosinophils % (Auto) 4.5 % (0.0-7.0); Hematocrit 40.9 % (40.1-51.0); Hemoglobin 13.7 g/dL (13.7-17.5); Lymphocytes # (Auto) 1.23 K/mcL (1.50-4.80); Lymphocytes % (Auto) 26.3 % (15.5-49.0); Mean Cell Volume 94.2 fL (80.0-100.0); Mean Corpuscular HGB Conc 33.5 g/dL (31.0-36.0); Mean Platelet Volume 12.2 fL (7.4-10.4); Monocytes # (Auto) 0.62 K/mcL (0.10-0.90); Monocytes % (Auto) 13.3 % (1.0-12.0); Neutrophils % (Auto) 55.3 % (38.0-78.0); Platelet Count 81 K/mcL (140-440); RBC 4.34 M/mcL (4.63-6.08); Red Cell Distribution Width 13.6 % (11.5-14.5); WBC 4.7 K/mcL (4.5-11.0)
[2021-04-15 07:12] LABS: ALT/SGPT 27 U/L (<40); AST/SGOT 56 U/L (<40); Albumin 2.9 gm/dL (3.2-5.2); Alkaline Phosphatase 131 U/L (39-117); Bilirubin,Direct 0.4 mg/dL (<0.3); Blood Urea Nitrogen 10 mg/dL (8-23); Calcium 8.8 mg/dL (8.6-10.4); Carbon Dioxide 24 mmol/L (22-30); Chloride 108 mmol/L (96-108); Globulin 2.9 gm/dL (2.2-3.7); Glomerular Filtration Rate 93; Glucose 91 mg/dL (70-105); Lactate Dehydrogenase 350 U/L (135-225); Phosphorous 2.5 mg/dL (2.5-4.5); Triglycerides 42 mg/dL (<150); Uric Acid 6.2 mg/dL (2.5-8.0)
--- NOTE | 2021-04-15 07:40 | Internal Med Progress Note ---
SUBJECTIVE Subjective Patient information: Note initiated : 04/15/21 at 7:39 am Service Date, if different from initiated Date: [] Patient: Romero Godoman 65 y/o M admitted on 04/13/21 for Fall, Altered Mental Status. Chief Complaint: [] Interval history: History of present illness: Mr. Goodman is a 65 year old M Brought in for confusion. [facility] was called 3 times today because neighbors found him stumbling outside and confused. He lives by himself in apartment. His sister says she thinks he is out of lactulose and has not had it for a while. Patient a mildly elevated ammonia. And was confused in the ED but was able to take lactulose orally. Unable to gather accurate review of systems given mild altered state and his dentures do not seem to be fitting. 04/14 Patient sitting up in chair eating breakfast, mentation much improved. No new complaints overnight events. Low magnesium, mildly low potassium. Good BMs last night with lactulose. 04/15 No overnight event or new complaints. Working with PT placement to SNF likely on Saturday. Patient does admit to still using meth and states last used within a week. Review of Systems: denies headache/fever/chills/nausea/vomiting/chest or abdominal pain/cough/dyspnea/diarrhea. Otherwise see above. Constitutional Vitals: Vital Signs Temp Pulse Resp BP Pulse Ox 96.8 F L 78 16 114/78 92 04/15/21 04:01 04/13/21 20:59 04/15/21 04:01 04/15/21 06:01 04/15/21 06:01 Period Temp Pulse Resp BP Sys/Ronquillo Pulse Ox Last 24 Hr 96.8 F-98.1 F 14-20 96-120/51-78 91-98 Intake and Output 04/14/21 04/15/21 04/15/21 21:59 05:59 13:59 Intake Total 900 240 Output Total 450 150 Balance 450 90 Weight 66.905 kg 65.771 kg Intake & Output: Intake & Output 04/14/21 04/15/21 04/15/21 21:59 05:59 13:59 Intake Total 900 240 Output Total 450 150 Balance 450 90 Weight 66.905 kg 65.771 kg Intake: Oral 900 240 Output: Void Amount 150 Urine/Stool Mix 450 Other: Meal Lunch Percent of Meal Consumed 75% Feeding Ability Independent Urine Appearance Clear Clear Urine Color Dark Yellow Dark Yellow Urine Odor Normal Normal Stool Size Moderate Stool Color Brown Yan Colored Stool Consistency Soft Loose Exam: General: awake, no acute Distress Eyes/N/T: EOMI, dentures Head/Neck: neck supple, CV: RRR, No murmurs, Pulm: Clear b/l, no wheezing/rhonchi/rales Abd: soft, nontender, +BS x4 Ext: no clubbing/cyanosis/edema Neuro: A&Ox4, no focal deficits, moves all extremities, Skin: warm/dry OBJ DATA Labs CBC & Chem 7: 04/15/21 05:21 04/15/21 05:20 Labs: Abnormal Lab Results 04/15/21 04/15/21 04/14/21 05:21 05:20 05:57 RBC 4.34 L Plt Count 81 L MPV 12.2 H [place] % (Auto) 13.3 H Lymph # (Auto) 1.23 L Reactive Lymphocytes Platelet Estimate PT INR Potassium 3.2 L Chloride 110 H Carbon Dioxide 21 L POC BUN Glucose POC Glucose Magnesium 1.5 L 1.5 L Total Bilirubin 3.0 H 4.6 H Direct Bilirubin 0.4 H 0.5 H AST 56 H 60 H Alkaline Phosphatase 131 H Ammonia Lactate Dehydrogenase 350 H 408 H Total Protein 5.8 L Albumin 2.9 L 3.0 L Urine Appearance Urine Protein Urine Ketones Urine Urobilinogen Urine RBC Hyaline Casts Urine Mucus Ur Amphetamines Screen 04/14/21 04/13/21 04/13/21 05:57 17:16 17:16 RBC 4.60 L Plt Count 83 L MPV 11.8 H [place] % (Auto) 15.3 H Lymph # (Auto) 1.23 L Reactive Lymphocytes Platelet Estimate PT INR Potassium Chloride Carbon Dioxide POC BUN Glucose POC Glucose Magnesium Total Bilirubin Direct Bilirubin AST Alkaline Phosphatase Ammonia Lactate Dehydrogenase Total Protein Albumin Urine Appearance Hazy A Urine Protein 30 A Urine Ketones 5 A Urine Urobilinogen 4.0 A Urine RBC 37 H Hyaline Casts 9 H Urine Mucus Few A Ur Amphetamines Screen Suspect positive A 04/13/21 04/13/21 04/13/21 15:57 15:57 14:22 RBC 4.43 L Plt Count 96 L MPV 11.7 H [place] % (Auto) Lymph # (Auto) Reactive Lymphocytes 3 H Platelet Estimate Decreased A PT INR Potassium Chloride Carbon Dioxide POC BUN Glucose 110 H POC Glucose Magnesium Total Bilirubin 5.4 H Direct Bilirubin AST 62 H Alkaline Phosphatase Ammonia 87 H Lactate Dehydrogenase Total Protein Albumin Urine Appearance Urine Protein Urine Ketones Urine Urobilinogen Urine RBC Hyaline Casts Urine Mucus Ur Amphetamines Screen 04/13/21 04/13/21 14:00 14:00 RBC Plt Count MPV [place] % (Auto) Lymph # (Auto) Reactive Lymphocytes Platelet Estimate PT 17.3 H INR 1.4 H Potassium Chloride Carbon Dioxide POC BUN 21 H Glucose POC Glucose 67 L Magnesium Total Bilirubin Direct Bilirubin AST Alkaline Phosphatase Ammonia Lactate Dehydrogenase Total Protein Albumin Urine Appearance Urine Protein Urine Ketones Urine Urobilinogen Urine RBC Hyaline Casts Urine Mucus Ur Amphetamines Screen Meds: Medications Acetaminophen (Acetaminophen 325 Mg Tablet) 650 mg PO Q6HP PRN; Protocol PRN Reason: Per Pain Protocol/Fever > 101 Albuterol/Ipratropium (Ipratropium/Albuterol 3 Ml Ampul.Neb) 3 ml NEB Q4HP PRN PRN Reason: Shortness Of Breath Enoxaparin Sodium (Enoxaparin 40 Mg/0.4 Ml Syringe) 40 mg SQ DAILY [facility] Last Admin: 04/14/21 09:07 Dose: 40 mg Documented by: Potassium Chloride 40 meq/ (Dextrose) 520 mls @ 130 mls/hr IV UD PRN PRN Reason: Potassium < 3 Magnesium Sulfate (Magnesium Sulfate) 2 gm in 50 mls @ 50 mls/hr IV UD PRN PRN Reason: Magnesium </= 1.6 Last Infusion: 04/14/21 10:15 Dose: Infused Documented by: Lactulose (Lactulose 20 Gm/30 Ml Oral.Zahra) 20 gm PO TID [facility] Last Admin: 04/14/21 20:25 Dose: Not Given Documented by: Ondansetron HCl (Ondansetron 4 Mg/2 Ml Vial) 4 mg IV Q4HP PRN PRN Reason: Nausea And Vomiting Pneumococcal Polyvalent Vaccine (Pneumococcal 23-Kimberly P-Sac Vac 0.5 Ml Syringe) 0.5 ml IM .ONCE ONE Stop: 04/15/21 10:01 Potassium Chloride (Potassium Chloride 20 Meq Tablet) 40 meq PO UD PRN PRN Reason: Potssium is 3-3.5 Potassium Chloride (Potassium Chloride 20 Meq Tablet) 40 meq PO UD PRN PRN Reason: Potassium < 3 Sodium Chloride (0.9 % Sodium Chloride 10 Ml Syringe) 10 ml IV Q8 [facility] Last Admin: 04/15/21 04:43 Dose: 10 ml Documented by: A/P Narrative A/P Narrative: A: *Hepatic encephalopathy: 2/2 med noncompliance. resolved *Alcoholic cirrhosis: Patient states he has not had a drink in years. -with thrombocytopenia and esophageal varices *h/o substance abuse: Denied active drug use on admit -admitted to still using Meth once confronted about +UDS *Self-care deficits/generalized weakeness: *Hypokalemia/hypomagnesemia: P: -lactulose titrate to 2-3 soft BM's day -f/u outpt with GI/PCP -Medication reconciliation -hold ACEI for low normal BP -PT/OT -CM for placement -substance use cessation counseling -ppx: Lovenox (hold for plts<50k) Time Spent With Patient Time: Total time spent is greater than 50% in coordination of care (as documented) at patient's floor/unit and/or counseling patient:
[2021-04-15] MEDS ORDERED: MAGNESIUM SULFATE 2 GM/50 ML BAG IV ONE (08:00)
[2021-04-15] MEDS: ENOXAPARIN 40 MG/0.4 ML SYRINGE SQ SCH (09:23)
[2021-04-15] MEDS: LACTULOSE 20 GM/30 ML ORAL.SOL PO SCH ×3 (09:23→21:34)
[2021-04-15] MEDS ORDERED: PNEUMOCOCCAL 23-VAL P-SAC VAC 0.5 ML SYRINGE IM ONE (10:00)
[2021-04-15] MEDS ORDERED: FLU VACC QS2021-22(6MOS UP)/PF 60 MCG/0.5 ML SYRINGE IM ONE (10:00)
[2021-04-15] MEDS ORDERED: POTASSIUM CHLORIDE 20 MEQ TABLET PO PRN ×2 (16:44)
[2021-04-15] MEDS ORDERED: ONDANSETRON 4 MG/2 ML VIAL IV PRN (16:44)
[2021-04-15] MEDS ORDERED: ACETAMINOPHEN 325 MG TABLET PO PRN (16:44)
[2021-04-15] MEDS ORDERED: POTASSIUM CHLORIDE 40 MEQ in DEXTROSE 5% IN WATER 500 ML IV PRN (16:44)
[2021-04-15] MEDS ORDERED: IPRATROPIUM/ALBUTEROL 3 ML AMPUL.NEB NEB PRN (16:44)
[2021-04-15] MEDS ORDERED: MAGNESIUM SULFATE 2 GM/50 ML BAG IV PRN (16:44)
[2021-04-16] MEDS: 0.9 % SODIUM CHLORIDE 10 ML SYRINGE IV SCH ×3 (05:44→21:51)
--- NOTE | 2021-04-16 07:28 | Internal Med Progress Note ---
SUBJECTIVE Subjective Patient information: Note initiated : 04/16/21 at 7:27 am Service Date, if different from initiated Date: [] Patient: Romero Goodman 65 y/o M admitted on 04/13/21 for Fall, Altered Mental Status. Chief Complaint: [] Interval history: History of present illness: Mr. Goodman is a 65 year old M Brought in for confusion. [facility] bates was called 3 times today because neighbors found him stumbling outside and confused. He lives by himself in apartment. His sister says she thinks he is out of lactulose and has not had it for a while. Patient a mildly elevated ammonia. And was confused in the ED but was able to take lactulose orally. Unable to gather accurate review of systems given mild altered state and his dentures do not seem to be fitting. 04/14 Patient sitting up in chair eating breakfast, mentation much improved. No new complaints overnight events. Low magnesium, mildly low potassium. Good BMs last night with lactulose. 04/15 No overnight event or new complaints. Working with PT placement to SNF likely on Saturday. Patient does admit to still using meth and states last used within a week. 04/16 Sitting up eating breakfast. No overnight event or new complaints. Patient doing well. Awaiting placement. Review of Systems: denies headache/fever/chills/nausea/vomiting/chest or abdominal pain/cough/dyspnea/diarrhea. Otherwise see above. Constitutional Vitals: Vital Signs Temp Pulse Resp BP Pulse Ox 97.5 F 72 16 108/71 92 04/16/21 01:32 PST 04/16/21 01:32 PST 04/16/21 01:32 PST 04/16/21 01:32 PST 04/16/21 01:32 PST Period Temp Pulse Resp BP Sys/Ronquillo Pulse Ox Last 24 Hr 97.4 F-98.2 F 72-80 16-20 106-115/69-79 92-98 Intake and Output 04/15/21 04/16/21 04/16/21 22:59 05:59 13:59 Intake Total Output Total 200 Balance -200 Weight Intake & Output: Intake & Output 04/15/21 04/16/21 04/16/21 22:59 05:59 13:59 Intake Total Output Total 200 Balance -200 Weight Intake: Oral Output: Void Amount 200 Stool Other: Meal Percent of Meal Consumed Feeding Ability Urine Appearance Clear Urine Color Light Jenna Urine Odor Stool Size Stool Color Stool Consistency # Bowel Movements # of times incontinent of Bowels Exam: General: awake, no acute Distress Eyes/N/T: EOMI, dentures Head/Neck: neck supple, CV: RRR, No murmurs, Pulm: Clear b/l, no wheezing/rhonchi/rales Abd: soft, nontender, +BS x4 Ext: no clubbing/cyanosis/edema Neuro: A&Ox4, no focal deficits, moves all extremities, Skin: warm/dry OBJ DATA Labs CBC & Chem 7: 04/15/21 05:21 04/15/21 05:20 Labs: Abnormal Lab Results 04/15/21 04/15/21 04/14/21 05:21 05:20 05:57 RBC 4.34 L Plt Count 81 L MPV 12.2 H [place] % (Auto) 13.3 H Lymph # (Auto) 1.23 L Reactive Lymphocytes Platelet Estimate PT INR Potassium 3.2 L Chloride 110 H Carbon Dioxide 21 L POC BUN Glucose POC Glucose Magnesium 1.5 L 1.5 L Total Bilirubin 3.0 H 4.6 H Direct Bilirubin 0.4 H 0.5 H AST 56 H 60 H Alkaline Phosphatase 131 H Ammonia Lactate Dehydrogenase 350 H 408 H Total Protein 5.8 L Albumin 2.9 L 3.0 L Urine Appearance Urine Protein Urine Ketones Urine Urobilinogen Urine RBC Hyaline Casts Urine Mucus Ur Amphetamines Screen 04/14/21 04/13/21 04/13/21 05:57 17:16 17:16 RBC 4.60 L Plt Count 83 L MPV 11.8 H [place] % (Auto) 15.3 H Lymph # (Auto) 1.23 L Reactive Lymphocytes Platelet Estimate PT INR Potassium Chloride Carbon Dioxide POC BUN Glucose POC Glucose Magnesium Total Bilirubin Direct Bilirubin AST Alkaline Phosphatase Ammonia Lactate Dehydrogenase Total Protein Albumin Urine Appearance Hazy A Urine Protein 30 A Urine Ketones 5 A Urine Urobilinogen 4.0 A Urine RBC 37 H Hyaline Casts 9 H Urine Mucus Few A Ur Amphetamines Screen Suspect positive A 04/13/21 04/13/21 04/13/21 15:57 15:57 14:22 RBC 4.43 L Plt Count 96 L MPV 11.7 H [place] % (Auto) Lymph # (Auto) Reactive Lymphocytes 3 H Platelet Estimate Decreased A PT INR Potassium Chloride Carbon Dioxide POC BUN Glucose 110 H POC Glucose Magnesium Total Bilirubin 5.4 H Direct Bilirubin AST 62 H Alkaline Phosphatase Ammonia 87 H Lactate Dehydrogenase Total Protein Albumin Urine Appearance Urine Protein Urine Ketones Urine Urobilinogen Urine RBC Hyaline Casts Urine Mucus Ur Amphetamines Screen 04/13/21 04/13/21 14:00 14:00 RBC Plt Count MPV [place] % (Auto) Lymph # (Auto) Reactive Lymphocytes Platelet Estimate PT 17.3 H INR 1.4 H Potassium Chloride Carbon Dioxide POC BUN 21 H Glucose POC Glucose 67 L Magnesium Total Bilirubin Direct Bilirubin AST Alkaline Phosphatase Ammonia Lactate Dehydrogenase Total Protein Albumin Urine Appearance Urine Protein Urine Ketones Urine Urobilinogen Urine RBC Hyaline Casts Urine Mucus Ur Amphetamines Screen Meds: Medications Acetaminophen (Acetaminophen 325 Mg Tablet) 650 mg PO Q6HP PRN; Protocol PRN Reason: Per Pain Protocol/Fever > 101 Albuterol/Ipratropium (Ipratropium/Albuterol 3 Ml Ampul.Neb) 3 ml NEB Q4HP PRN PRN Reason: Shortness Of Breath Enoxaparin Sodium (Enoxaparin 40 Mg/0.4 Ml Syringe) 40 mg SQ DAILY [facility] Magnesium Sulfate (Magnesium Sulfate) 2 gm in 50 mls @ 50 mls/hr IV UD PRN PRN Reason: Magnesium </= 1.6 Potassium Chloride 40 meq/ (Dextrose) 520 mls @ 130 mls/hr IV UD PRN PRN Reason: Potassium < 3 Lactulose (Lactulose 20 Gm/30 Ml Oral.Zahra) 20 gm PO TID [facility] Last Admin: 04/15/21 21:34 Dose: Not Given Documented by: Ondansetron HCl (Ondansetron 4 Mg/2 Ml Vial) 4 mg IV Q4HP PRN PRN Reason: Nausea And Vomiting Potassium Chloride (Potassium Chloride 20 Meq Tablet) 40 meq PO UD PRN PRN Reason: Potssium is 3-3.5 Potassium Chloride (Potassium Chloride 20 Meq Tablet) 40 meq PO UD PRN PRN Reason: Potassium < 3 Sodium Chloride (0.9 % Sodium Chloride 10 Ml Syringe) 10 ml IV Q8 [facility] Last Admin: 04/16/21 05:44 Dose: 10 ml Documented by: A/P Narrative A/P Narrative: A: *Hepatic encephalopathy: 2/2 med noncompliance. resolved *Alcoholic cirrhosis: Patient states he has not had a drink in years. -with thrombocytopenia and esophageal varices *h/o substance abuse: Denied active drug use on admit -admitted to still using Meth once confronted about +UDS *Self-care deficits/generalized weakeness: *Hypokalemia/hypomagnesemia: P: -lactulose titrate to 2-3 soft BM's day -f/u outpt with GI/PCP -PT/OT -CM for placement, awaiting -substance use cessation counseling -ppx: Lovenox (hold for plts<50k) Time Spent With Patient Time: Total time spent is greater than 50% in coordination of care (as documented) at patient's floor/unit and/or counseling patient:
--- NOTE | 2021-04-16 08:19 | Discharge Summary ---
Discharge Provider Provider Patient information: Note initiated : 04/16/21 at 8:18 am Service Date, if different from initiated Date: [] Patient: Romero Goodman 65 y/o M admitted on 04/13/21 for Fall, Altered Mental Status. Chief Complaint: [] Date of admission: 04/13/21 20:59 Primary care physician: Leeann Peterson Consults: 04/13/21 Consult to Physician [CONS] Stat Comment: Consulting Provider: Bakari Gill Reason For Exam: Physician to Consult Discharge Meds Discharge Medications Home Medications Adults Multivitamin 1 tab PO DAILY 04/14/21 [History Confirmed 04/14/21 Last Taken Unknown] lactulose 10 g PO TID 04/14/21 [History Confirmed 04/14/21 Last Taken Unknown] COURSE Hospital Course Hospital course: Interval history: History of present illness: Mr. Goodman is a 65 year old M Brought in for confusion. [facility] bates was called 3 times today because neighbors found him stumbling outside and confused. He lives by himself in apartment. His sister says she thinks he is out of lactulose and has not had it for a while. Patient a mildly elevated ammonia. And was confused in the ED but was able to take lactulose orally. Unable to gather accurate review of systems given mild altered state and his dentures do not seem to be fitting. 04/14 Patient sitting up in chair eating breakfast, mentation much improved. No new complaints overnight events. Low magnesium, mildly low potassium. Good BMs last night with lactulose. 04/15 No overnight event or new complaints. Working with PT placement to SNF likely on Saturday. Patient does admit to still using meth and states last used within a week. 04/16 Sitting up eating breakfast. No overnight event or new complaints. Patient doing well. Awaiting placement. A: *Hepatic encephalopathy: 2/2 med noncompliance. resolved *Alcoholic cirrhosis: Patient states he has not had a drink in years. -with thrombocytopenia and esophageal varices *h/o substance abuse: Denied active drug use on admit -admitted to still using Meth once confronted about +UDS *Self-care deficits/generalized weakeness: *Hypokalemia/hypomagnesemia: P: -lactulose titrate to 2-3 soft BM's day -f/u outpt with GI/PCP Discharge diagnosis: Hepatic encephalopathy alcoholic cirrhosis substance abuse methamphetamine Secondary discharge diagnosis: Electrolyte abnormalities self-care deficits generalized weakness Time Spent with Patient Time attestation: Total time spent providing and/or coordinating discharge services: Time spent: Greater than 30 minutes EXAM Constitutional Vitals: Temp Pulse Resp BP Pulse Ox 97.4 F 72 20 108/75 93 04/16/21 07:45 04/16/21 01:32 PST 04/16/21 07:45 04/16/21 07:45 04/16/21 07:45 Discharge Plan Patient/Caregiver Discharge Instructions Activity: increase activity as tolerated Diet: Regular Diet Activity Restrictions/Additional Instructions: Follow-up with gastroenterology in 5 to 14 days for cirrhosis. Prescriptions: Continued Adults Multivitamin 1 tab PO DAILY RF: 0 lactulose 10 gram/15 mL Solution 10 g PO TID RF: 0 Follow Up Plan Follow up with: Leeann Peterson MD [Primary Care Provider] - Patient Disposition: Xfer SNF Prognosis: Undetermined Rehab Potential: Fair I certify that the patient requires SNF services: Yes Overall status at discharge: patient is progressing back to baseline
[2021-04-16] MEDS: LACTULOSE 20 GM/30 ML ORAL.SOL PO SCH ×3 (09:26→21:50)
[2021-04-16] MEDS: ENOXAPARIN 40 MG/0.4 ML SYRINGE SQ SCH (09:27)
[2021-04-17] MEDS: 0.9 % SODIUM CHLORIDE 10 ML SYRINGE IV SCH ×3 (07:31→22:00)
--- NOTE | 2021-04-17 08:21 | Internal Med Progress Note ---
SUBJECTIVE Subjective Patient information: Note initiated : 04/17/21 at 8:20 am Service Date, if different from initiated Date: [] Patient: Romero Goodman 65 y/o M admitted on 04/13/21 for Fall, Altered Mental Status. Chief Complaint: [] Interval history: History of present illness: Mr. Goodman is a 65 year old M Brought in for confusion. Nilesh bates was called 3 times today because neighbors found him stumbling outside and confused. He lives by himself in apartment. His sister says she thinks he is out of lactulose and has not had it for a while. Patient a mildly elevated ammonia. And was confused in the ED but was able to take lactulose orally. Unable to gather accurate review of systems given mild altered state and his dentures do not seem to be fitting. 04/14 Patient sitting up in chair eating breakfast, mentation much improved. No new complaints overnight events. Low magnesium, mildly low potassium. Good BMs last night with lactulose. 04/15 No overnight event or new complaints. Working with PT placement to SNF likely on Saturday. Patient does admit to still using meth and states last used within a week. 04/16 Sitting up eating breakfast. No overnight event or new complaints. Patient doing well. Awaiting placement. 04/17 Patient doing well no new complaints. Mentation clear. Awaiting placement Review of Systems: denies headache/fever/chills/nausea/vomiting/chest or abdominal pain/cough/dyspnea/diarrhea. Otherwise see above. Constitutional Vitals: Vital Signs Temp Pulse Resp BP Pulse Ox 98.2 F 75 20 122/78 93 04/17/21 04:00 04/17/21 04:00 04/17/21 04:00 04/17/21 04:00 04/17/21 00:00 Period Temp Pulse Resp BP Sys/Ronquillo Pulse Ox Last 24 Hr 97.5 F-98.4 F 75-81 16-20 111-130/68-78 93-94 Intake and Output 04/16/21 04/17/21 04/17/21 21:59 05:59 13:59 Intake Total 1020 720 Output Total 275 525 200 Balance 745 195 -200 Weight 67.54 kg Intake & Output: Intake & Output 04/16/21 04/17/21 04/17/21 21:59 05:59 13:59 Intake Total 1020 720 Output Total 275 525 200 Balance 745 195 -200 Weight 67.54 kg Intake: Oral 1020 720 Output: Void Amount 275 525 200 Other: Urine Appearance Clear Clear Urine Color Pale Bright Yellow Stool Size Large Stool Color Brown Stool Consistency Liquid # Voids 1 # Bowel Movements 1 1 # of times incontinent of 1 Bowels Exam: General: awake, no acute Distress Eyes/N/T: EOMI, dentures Head/Neck: neck supple, CV: RRR, No murmurs, Pulm: Clear b/l, no wheezing/rhonchi/rales Abd: soft, nontender, +BS x4 Ext: no clubbing/cyanosis/edema Neuro: A&Ox4, no focal deficits, moves all extremities, Skin: warm/dry OBJ DATA Labs CBC & Chem 7: 04/15/21 05:21 04/15/21 05:20 Labs: Abnormal Lab Results 04/15/21 04/15/21 05:21 05:20 RBC 4.34 L Plt Count 81 L MPV 12.2 H [place] % (Auto) 13.3 H Lymph # (Auto) 1.23 L Magnesium 1.5 L Total Bilirubin 3.0 H Direct Bilirubin 0.4 H AST 56 H Alkaline Phosphatase 131 H Lactate Dehydrogenase 350 H Total Protein 5.8 L Albumin 2.9 L Meds: Medications Acetaminophen (Acetaminophen 325 Mg Tablet) 650 mg PO Q6HP PRN; Protocol PRN Reason: Per Pain Protocol/Fever > 101 Albuterol/Ipratropium (Ipratropium/Albuterol 3 Ml Ampul.Neb) 3 ml NEB Q4HP PRN PRN Reason: Shortness Of Breath Enoxaparin Sodium (Enoxaparin 40 Mg/0.4 Ml Syringe) 40 mg SQ DAILY [facility] Last Admin: 04/16/21 09:27 Dose: 40 mg Documented by: Magnesium Sulfate (Magnesium Sulfate) 2 gm in 50 mls @ 50 mls/hr IV UD PRN PRN Reason: Magnesium </= 1.6 Potassium Chloride 40 meq/ (Dextrose) 520 mls @ 130 mls/hr IV UD PRN PRN Reason: Potassium < 3 Lactulose (Lactulose 20 Gm/30 Ml Oral.Zahra) 20 gm PO TID BILLY Last Admin: 04/16/21 21:50 Dose: Not Given Documented by: Ondansetron HCl (Ondansetron 4 Mg/2 Ml Vial) 4 mg IV Q4HP PRN PRN Reason: Nausea And Vomiting Potassium Chloride (Potassium Chloride 20 Meq Tablet) 40 meq PO UD PRN PRN Reason: Potssium is 3-3.5 Potassium Chloride (Potassium Chloride 20 Meq Tablet) 40 meq PO UD PRN PRN Reason: Potassium < 3 Sodium Chloride (0.9 % Sodium Chloride 10 Ml Syringe) 10 ml IV Q8 BILLY Last Admin: 04/17/21 07:31 Dose: 10 ml Documented by: A/P Narrative A/P Narrative: A: *Hepatic encephalopathy: 2/2 med noncompliance. resolved *Alcoholic cirrhosis: Patient states he has not had a drink in years. -with thrombocytopenia and esophageal varices *h/o substance abuse: Denied active drug use on admit -admitted to still using Meth once confronted about +UDS *Self-care deficits/generalized weakeness: *Hypokalemia/hypomagnesemia: P: -lactulose titrate to 2-3 soft BM's day -f/u outpt with GI/PCP -PT/OT -CM for placement, awaiting -substance use cessation counseling -ppx: Lovenox (hold for plts<50k) Time Spent With Patient Time: Total time spent is greater than 50% in coordination of care (as documented) at patient's floor/unit and/or counseling patient:
[2021-04-17] MEDS: LACTULOSE 20 GM/30 ML ORAL.SOL PO SCH ×2 (08:24→15:00)
[2021-04-17] MEDS: ENOXAPARIN 40 MG/0.4 ML SYRINGE SQ SCH (08:25)
[2021-04-18] MEDS: LACTULOSE 20 GM/30 ML ORAL.SOL PO SCH ×4 (00:56→15:51)
[2021-04-18] MEDS: 0.9 % SODIUM CHLORIDE 10 ML SYRINGE IV SCH ×2 (06:01→15:41)
[2021-04-18 06:55] LABS: Basophils # (Auto) 0.04 K/mcL (0.00-0.30); Basophils % (Auto) 0.8 % (0.0-2.0); Eosinophils # (Auto) 0.24 K/mcL (0.00-0.70); Eosinophils % (Auto) 4.6 % (0.0-7.0); Hematocrit 38.3 % (40.1-51.0); Hemoglobin 13.2 g/dL (13.7-17.5); Lymphocytes # (Auto) 1.41 K/mcL (1.50-4.80); Lymphocytes % (Auto) 27.1 % (15.5-49.0); Mean Cell Volume 92.7 fL (80.0-100.0); Mean Corpuscular HGB Conc 34.5 g/dL (31.0-36.0); Mean Platelet Volume 12.1 fL (7.4-10.4); Monocytes # (Auto) 0.66 K/mcL (0.10-0.90); Monocytes % (Auto) 12.7 % (1.0-12.0); Neutrophils % (Auto) 54.8 % (38.0-78.0); Platelet Count 88 K/mcL (140-440); RBC 4.13 M/mcL (4.63-6.08); Red Cell Distribution Width 13.5 % (11.5-14.5); WBC 5.2 K/mcL (4.5-11.0)
[2021-04-18 07:08] LABS: ALT/SGPT 30 U/L (<40); AST/SGOT 58 U/L (<40); Albumin 2.7 gm/dL (3.2-5.2); Albumin/Globulin Ratio 0.9 (1.0-2.3); Alkaline Phosphatase 106 U/L (39-117); Bilirubin,Total 1.7 mg/dL (0.1-1.0); Blood Urea Nitrogen 9 mg/dL (8-23); Calcium 8.9 mg/dL (8.6-10.4); Carbon Dioxide 23 mmol/L (22-30); Chloride 106 mmol/L (96-108); Glomerular Filtration Rate 105; Glucose 98 mg/dL (70-105)
[2021-04-18] MEDS: ENOXAPARIN 40 MG/0.4 ML SYRINGE SQ SCH (08:09)
--- NOTE | 2021-04-18 09:01 | Discharge Summary ---
Discharge Provider Provider Patient information: Note initiated : 04/18/21 at 8:59 am Service Date, if different from initiated Date: [] Patient: Romero Goodman 65 y/o M admitted on 04/13/21 for Fall, Altered Mental Status. Chief Complaint: [] Date of admission: 04/13/21 20:59 Discharge date: 04/18/21 Primary care physician: Leeann Peterson Consults: 04/13/21 Consult to Physician [CONS] Stat Comment: Consulting Provider: Bakari Gill Reason For Exam: Physician to Consult Discharge Meds Discharge Medications Home Medications Adults Multivitamin 1 tab PO DAILY 04/14/21 [History Confirmed 04/14/21 Last Taken Unknown] lactulose 10 g PO TID 04/14/21 [History Confirmed 04/14/21 Last Taken Unknown] COURSE Hospital Course Hospital course: History of present illness: Mr. Goodman is a 65 year old M Brought in for confusion. Nilesh bates was called 3 times today because neighbors found him stumbling outside and confused. He lives by himself in apartment. His sister says she thinks he is out of lactulose and has not had it for a while. Patient a mildly elevated ammonia. And was confused in the ED but was able to take lactulose orally. Unable to gather accurate review of systems given mild altered state and his dentures do not seem to be fitting. 04/14 Patient sitting up in chair eating breakfast, mentation much improved. No new complaints overnight events. Low magnesium, mildly low potassium. Good BMs last night with lactulose. 04/15 No overnight event or new complaints. Working with PT placement to SNF likely on Saturday. Patient does admit to still using meth and states last used within a week. 04/16 Sitting up eating breakfast. No overnight event or new complaints. Patient doing well. Awaiting placement. 04/17 Patient doing well no new complaints. Mentation clear. Awaiting placement 04/18: Discharged home with home health services. Discharge diagnosis: hepatic encephalopathy Time Spent with Patient Time attestation: Total time spent providing and/or coordinating discharge services: History of present illness: Mr. Goodman is a 65 year old M Brought in for confusion. Nilesh bates was called 3 times today because neighbors found him stumbling outside and confused. He lives by himself in apartment. His sister says she thinks he is out of lactulose and has not had it for a while. Patient a mildly elevated ammonia. And was confused in the ED but was able to take lactulose orally. Unable to gather accurate review of systems given mild altered state and his dentures do not seem to be fitting. 04/14 Patient sitting up in chair eating breakfast, mentation much improved. No new complaints overnight events. Low magnesium, mildly low potassium. Good BMs last night with lactulose. 04/15 No overnight event or new complaints. Working with PT placement to SNF likely on Saturday. Patient does admit to still using meth and states last used within a week. 04/16 Sitting up eating breakfast. No overnight event or new complaints. Patient doing well. Awaiting placement. 04/17 Patient doing well no new complaints. Mentation clear. Awaiting placement 04/18: Discharged home with home health services. EXAM Constitutional Vitals: Temp Pulse Resp BP Pulse Ox 36.4 C 60 18 124/69 97 04/18/21 07:32 04/18/21 08:00 04/18/21 08:00 04/18/21 07:32 04/18/21 08:00 General appearance: cooperative and no acute distress Head Head exam: Present atraumatic and normocephalic Eye Eye exam: Present EOMI and PERRL ENT ENT exam: Present mucous membranes moist, normal exam and normal external ear exam Neck Neck exam: Present normal inspection; Absent lymphadenopathy, tenderness and thyromegaly Respiratory Respiratory exam: Absent accessory muscle use, respiratory distress and wheezes Cardiovascular Cardiovascular exam: Present normal rate and rhythm; Absent JVD GI/Abdominal GI/Abdominal exam: Present normal bowel sounds and soft; Absent organomegaly and tenderness Rectal Rectal exam: Present deferred Extremities Exam Extremities exam: Present full ROM, normal capillary refill and normal inspection; Absent tenderness Neurological Exam Neurological exam: Present alert, CN II-XII intact and oriented X3; Absent motor sensory deficit Psychiatric Psychiatric exam: Present normal affect and normal mood; Absent anxious and depressed Skin Skin exam: Present dry and intact Discharge Data Data Completed and Pending Labs on day of discharge: Labs from last 24 hours 04/18/21 04/18/21 04:52 04:52 WBC 5.2 RBC 4.13 L Hgb 13.2 L Hct 38.3 L MCV 92.7 MCH 32.0 MCHC 34.5 RDW 13.5 Plt Count 88 L MPV 12.1 H Neut % (Auto) 54.8 Lymph % (Auto) 27.1 [place] % (Auto) 12.7 H Eos % (Auto) 4.6 Baso % (Auto) 0.8 Lymph # (Auto) 1.41 L [place] # (Auto) 0.66 Eos # (Auto) 0.24 Baso # (Auto) 0.04 Absolute Neutrophils 2.86 Sodium 138 Potassium 3.9 Chloride 106 Carbon Dioxide 23 Anion Gap 9.0 BUN 9 Creatinine 0.6 L GFR Calculation 105 Glucose 98 Calcium 8.9 Magnesium 1.6 Total Bilirubin 1.7 H AST 58 H ALT 30 Alkaline Phosphatase 106 Total Protein 5.7 L Albumin 2.7 L Globulin 3.0 Albumin/Globulin Ratio 0.9 L Discharge Plan Patient/Caregiver Discharge Instructions Activity: increase activity as tolerated Diet: Regular Diet Instructions: Cirrhosis (GEN), Hepatic Encephalopathy (GEN) Activity Restrictions/Additional Instructions: A referral has been sent to Dr. Leon Re: cirrhosis; they will contact you to schedule an appointment. [facility] will contact you when they have an opening. Increase activity as tolerated, continue with a regular diet. Prescriptions: Continued Adults Multivitamin 1 tab PO DAILY RF: 0 lactulose 10 gram/15 mL Solution 10 g PO TID RF: 0 Follow Up Plan Follow up with: Vikas Leon MD [Physician] - (A referral has been sent re: Cirrhosis They will contact you to schedule an appointment.) Leeann Peterson MD [Primary Care Provider] - 04/26/21 1:30 pm (Thia appointment is with Dr. Aniket Ruiz) Patient Disposition: Home Health Service Prognosis: Undetermined Rehab Potential: Fair I certify that the patient requires SNF services: No Overall status at discharge: patient is back to baseline Discharge Orders: Discharge Order (Routine); Ordered 04/18/21 Ordered By: Hema Yao
== END 2021-04-18 17:52 | disposition home health service (06) | DRG 434 ==
LOC: ED 13:23 → ICU 20:59
PROVIDERS: ADMIT Internal Medicine; ATTEND Internal Medicine